=== PATIENT | female | born 1960 | race Two or more races ===

== ENCOUNTER 2016-09-30 19:05 | Emergency (ER) | payer SELFPAY ==
[~2016-09-30] VITALS: Ht 165.1 cm; Wt 82.6 kg
[~2016-09-30 19:05] MED LIST: DOCU100C5 PO; OMEP20CA9 PO; PHEN28OI RC; POLY17PO5 PO; SENN8.6T3 PO
[2016-09-30 20:04] VITALS: BP 144/78
[2016-09-30 21:16] LABS: BILIRUBIN,URINE NEGATIVE (NEG); GLUCOSE,URINE NEGATIVE (NEG); NITRITE,URINE NEGATIVE (NEG); PH,URINE 7.5; PROTEIN,URINE NEGATIVE (NEG-TRACE)
[2016-09-30 21:27] LABS: BACTERIA,URINE FEW /HPF (0-FEW); RBC,URINE 0 /HPF (0-2); SQUAMOUS EPITHELIAL CELL,UR OCC /LPF
[2016-09-30] MEDS ORDERED: KETOROLAC TROMETHAMINE 60 MG/2 ML INJ. IM ONE (21:30)
[2016-09-30] MEDS ORDERED: ORPHENADRINE CITRATE 60 MG/2 ML VIAL. IM ONE (21:30)
[2016-09-30] MEDS ORDERED: METH-37 PO (21:50)
[2016-09-30] MEDS ORDERED: ACET-704 PO (21:50)
--- NOTE | 2016-09-30 21:50 | PHYS DOC ---
Past Medical History Past Medical History: No Pertinent History Additional Past Medical Histor: DOES NOT SEE PHYSICIAN OTHER THAN ED VISITS NEEDED PER DAUGHTER. Past Surgical History: Cholecystectomy Smoking: Less than 1pk/day Alcohol Use: Occasionally Drug Use: None Adult General Chief Complaint Chief Complaint: LOWER EXT PAIN [facility] HPI Patient is a 55 year old female who presents with right hip and radiates down the right leg for 1 week. She reports lateral numbness in the right leg. She also has urinary frequency. She denies focal weakness, saddle anesthesia, or incontinence. She is not having nausea, vomiting, abdominal pain, dysuria, or hematuria. She has a history of sciatica on the left side with similar symptoms. She does not have a PCP. Review of Systems Review of Systems Constitutional: Denies fever or chills. [] Eyes: Denies change in visual acuity, redness, or eye pain. [] HENT: Denies ear pain, nasal congestion or sore throat. [] Respiratory: Denies cough or shortness of breath. [] Cardiovascular: Denies chest pain, palpitations or edema. [] GI: Denies abdominal pain, nausea, vomiting, bloody stools or diarrhea. [] : Denies dysuria, hematuria. Reports urinary frequency. Musculoskeletal: Reports right hip pain radiating into the right leg. Integument: Denies rash or skin lesions. [] Neurologic: Denies headache, focal weakness or sensory changes. Denies incontinence or saddle anesthesia. Endocrine: Denies polyuria or polydipsia. [] Psych: Denies anxiety or depression. [] All systems reviewed and negative unless otherwise stated in the HPI. Current Medications Current Medications Current Medications Medications (Trade) Dose Ordered Sig/Cj Start Time Stop Time Status Last Admin Dose Admin Ketorolac Tromethamine (Toradol Im) 60 mg 1X ONCE 09/30/16 21:30 09/30/16 21:31 DC 09/30/16 21:12 60 MG Orphenadrine Citrate (Norflex) 60 mg 1X ONCE 09/30/16 21:30 09/30/16 21:31 DC 09/30/16 21:12 60 MG Allergies Allergies Allergies Coded Allergies Type Severity Reaction Last Updated Verified No Known Drug Allergies 01/22/16 No Physical Exam Physical Exam Constitutional: Well developed, well nourished, no acute distress, non-toxic appearance. [] HENT: Normocephalic, atraumatic, oropharynx moist. [] Eyes: PERRLA, EOMI, conjunctiva normal, no discharge. [] Neck: Normal range of motion, no tenderness, supple, no stridor. [] Cardiovascular: Heart rate regular rhythm, no murmur. [] Lungs & Thorax: Bilateral breath sounds clear to auscultation without wheezes, rales, or rhonchi. [] Abdomen: Bowel sounds normal, soft, no tenderness, no masses, no pulsatile masses. [] Skin: Warm, dry, no erythema, no rash. [] Back: No midline tenderness, no CVA tenderness. Right lumbosacral paraspinal muscle tenderness. Extremities: No tenderness, ROM intact, no edema. Distal pulses equal bilaterally. Neurovascularly intact distally. Neurologic: Alert and oriented X 3, normal motor function, normal sensory function, no focal deficits noted. [] Psychologic: Affect normal, judgement normal, mood normal. [] . Current Patient Data Vital Signs Vital Signs Date Time Temp Pulse Resp B/P Pulse Ox O2 Delivery O2 Flow Rate FiO2 09/30/16 20:04 98.8 89 22 99 Room Air 98.8 Lab Values Laboratory Tests Test 09/30/16 21:05 Urine Color Yellow Urine Clarity Cloudy Urine pH 7.5 Urine Specific Isabel 1.020 Urine Protein Negativemg/dL (NEG-TRACE) Urine Glucose (UA) Negativemg/dL (NEG) Urine Ketones (Stick) Negativemg/dL (NEG) Urine Blood Negative (NEG) Urine Nitrite Negative (NEG) Urine Bilirubin Negative (NEG) Urine Urobilinogen Dipstick 1.0mg/dL (0.2 mg/dL) Urine Leukocyte Esterase Small (NEG) Urine RBC 0/HPF (0-2) Urine WBC 1-4/HPF (0-4) Urine Squamous Epithelial Cells Occ/LPF Urine Amorphous Sediment Present/HPF Urine Bacteria Few/HPF (0-FEW) Urine Mucus Slight/LPF EKG EKG [] Radiology/Procedures Radiology/Procedures [] Course & Med Decision Making Course & Med Decision Making Pertinent Labs and Imaging studies reviewed. (See chart for details) [] Dragon Disclaimer Dragon Disclaimer This electronic medical record was generated, in whole or in part, using a voice recognition dictation system. Departure Departure Impression: Primary Impression: Sciatica Disposition: 01 HOME, SELF-CARE Condition: STABLE Referrals: NO PCP (PCP) Patient Instructions: Sciatica, [id number] Additional Instructions: Please take the prescribed pain medicine as directed. Do not drive or operate heavy machinery while taking pain medication or muscle relaxers. To help with your pain, apply heat, practice dental stretching and light massage. Avoid bending or lifting activities that will further strain your back. Please follow-up with a primary care doctor if your pain continues. Return to the emergency department if you have a new or concerning symptoms. Scripts Acetaminophen With Codeine (Tylenol With Codeine #3 Tablet)1 Each Tablet1 Tab PO PRN Q6HRS PRN PAIN #20 TAB Prov:LUCIE AGUILAR 09/30/16 Methocarbamol (Robaxin)500 Mg [id number] Mg PO QID #20 TAB Prov:LUCIE AGUILAR 09/30/16 Problem Qualifiers Primary Impression: Sciatica Laterality: right Qualified Code: M54.31 - Sciatica, right side LUCIE AGUILAR Sep 30, 2016 21:50
== END 2016-09-30 22:03 | disposition home or self-care (01) ==
LOC: ER 19:05
DX: M54.31 Sciatica, right side (principal); F17.200 Nicotine dependence, unspecified, uncomplicated
CPT/HCPCS: 81001; 87086; 96372; 99284; J1885; J2360

== ENCOUNTER 2017-01-02 21:25 | Emergency (ER) | payer SELFPAY ==
[~2017-01-02] VITALS: Ht 157.5 cm; Wt 82.6 kg
[~2017-01-02 21:25] MED LIST changes: +ACET-704 PO; +DOCU100C28 PO; -DOCU100C5 PO; +METH-37 PO; +POLY17PO29 PO; -POLY17PO5 PO; +SENN-79 PO; -SENN8.6T3 PO
[2017-01-02 21:48] VITALS: BP 128/70
[2017-01-02] MEDS ORDERED: TRAM50TA PO (21:55)
--- NOTE | 2017-01-02 21:56 | PHYS DOC ---
Past Medical History Past Medical History: Other Additional Past Medical Histor: DOES NOT SEE PHYSICIAN OTHER THAN ED VISITS NEEDED PER DAUGHTER. Past Surgical History: Cholecystectomy Alcohol Use: Occasionally Drug Use: None Adult General Chief Complaint Chief Complaint: ANKLE PROBLEM HPI HPI Patient is a 56 year old female presents to the emergency department with a four-day history of pain to the left ankle. She states "there is a small bump there". Patient is non-Bruneian speaking and translation is via her granddaughter at their request. Review of Systems Review of Systems Constitutional: Denies fever or chills [] Eyes: Denies change in visual acuity, redness, or eye pain [] HENT: Denies nasal congestion or sore throat [] Respiratory: Denies cough or shortness of breath [] Cardiovascular: No additional information not addressed in HPI [] GI: Denies abdominal pain, nausea, vomiting, bloody stools or diarrhea [] : Denies dysuria or hematuria [] Musculoskeletal: Left ankle pain Integument: Denies rash or skin lesions [] Neurologic: Denies headache, focal weakness or sensory changes [] Endocrine: Denies polyuria or polydipsia [] Allergies Allergies Allergies Coded Allergies Type Severity Reaction Last Updated Verified No Known Drug Allergies 01/22/16 No Physical Exam Physical Exam Constitutional: Well developed, well nourished, no acute distress, non-toxic appearance. [] Cardiovascular:Heart rate regular rhythm, no murmur [] Lungs & Thorax: Bilateral breath sounds clear to auscultation [] Skin: Warm, dry, no erythema, no rash. Left ankle, lateral aspect, with a 1 cm firm, mobile nodule, no erythema, no fluctuance, no induration. [] Back: No tenderness, no CVA tenderness. [] Extremities: No tenderness, no cyanosis, no clubbing, ROM intact, no edema. [] Neurologic: Alert and oriented X 3, normal motor function, normal sensory function, no focal deficits noted. [] Psychologic: Affect normal, judgement normal, mood normal. [] Current Patient Data Vital Signs Vital Signs Date Time Temp Pulse Resp B/P (MAP) Pulse Ox O2 Delivery O2 Flow Rate FiO2 01/02/17 21:48 98.7 77 16 99 Room Air 98.7 01/02/17 21:48 128/70 (89) EKG EKG [] Radiology/Procedures Radiology/Procedures [] Course & Med Decision Making Course & Med Decision Making Pertinent Labs and Imaging studies reviewed. (See chart for details) [] Dragon Disclaimer Dragon Disclaimer This electronic medical record was generated, in whole or in part, using a voice recognition dictation system. Departure Departure Impression: Primary Impression: Cyst of skin Disposition: HOME, SELF-CARE Condition: STABLE Referrals: NO PCP (PCP) JAKUB JENSEN MD Patient Instructions: Epidermal Cyst Scripts Tramadol Hcl (TRAMADOL HCL) 50 Mg Tablet 50 MG PO Q8H Y for PAIN, #10 TAB 0 Refills Prov: LIONEL BUNDY APRN 01/02/17 LIONEL BUNDY APRN Jan 02, 2017 21:56
== END 2017-01-02 22:08 | disposition home or self-care (01) ==
LOC: ER 21:25
DX: L72.8 Other follicular cysts of the skin and subcutaneous tissue (principal); Z90.49 Acquired absence of other specified parts of digestive tract
CPT/HCPCS: 99283

== ENCOUNTER 2017-12-17 11:12 | Emergency (ER) | payer SELFPAY ==
[2017-12-17 11:45] LABS: URINE HCG POC HCG NEGATIVE (Negative)
[2017-12-17 11:49] LABS: BILIRUBIN,URINE NEGATIVE (NEG); CLARITY,URINE CLEAR; COLOR,URINE YELLOW; GLUCOSE,URINE NEGATIVE (NEG); NITRITE,URINE NEGATIVE (NEG); PH,URINE 5.5; PROTEIN,URINE 30 mg/dL (NEG-TRACE); UROBILINOGEN,URINE 0.2 mg/dL (0.2 mg/dL)
[2017-12-17 11:51] LABS: ADD MAN DIFF? NO
[2017-12-17 12:04] LABS: ANION GAP 9 (6-14); BLOOD UREA NITROGEN 14 mg/dL (7-20); BUN/CREATININE RATIO 16 (6-20); CALCIUM 8.6 mg/dL (8.5-10.1); CARBON DIOXIDE 26 mmol/L (21-32); CHLORIDE 103 mmol/L (98-107); CREATININE 0.9 mg/dL (0.6-1.0); GFR 64.5; GLUCOSE 143 mg/dL (70-99); POTASSIUM 3.7 mmol/L (3.5-5.1); SODIUM 138 mmol/L (136-145)
[2017-12-17 12:05] LABS: BASO % 0 % (0-3); EOS # 0.2 x10^3/uL (0.0-0.7); EOS % 2 % (0-3); HEMOGLOBIN 13.5 g/dL (12.0-15.5); LYMPH # 2.5 x10^3/uL (1.0-4.8); LYMPH % 29 % (24-48); MEAN CORPUSCULAR HEMOGLOBIN 29 pg (25-35); MEAN CORPUSCULAR HGB CONC 34 g/dL (31-37); MEAN CORPUSCULAR VOLUME 84 fL (79-100); MONO # 0.8 x10^3/uL (0.0-1.1); MONO % 10 % (0-9); NEUT # 4.9 x10^3uL (1.8-7.7); NEUT % 58 % (31-73); PLATELET COUNT 269 x10^3/uL (140-400); RED BLOOD COUNT 4.75 x10^6/uL (3.50-5.40); RED CELL DISTRIBUTION WIDTH 17.5 % (11.5-14.5); WHITE BLOOD COUNT 8.4 x10^3/uL (4.0-11.0)
[2017-12-17 12:09] LABS: ALBUMIN 3.4 g/dL (3.4-5.0); ALBUMIN/GLOBULIN RATIO 0.8 (1.0-1.7); ALK PHOS 106 U/L (46-116); ALT (SGPT) 37 U/L (14-59); AST (SGOT) 27 U/L (15-37); C-REACTIVE PROTEIN 3.6 mg/L (0-3.3); TOTAL BILIRUBIN 0.3 mg/dL (0.2-1.0); TOTAL PROTEIN 7.8 g/dL (6.4-8.2)
[2017-12-17 12:16] LABS: PROTHROMBIN TIME PATIENT 12.7 SEC (11.7-14.0)
[2017-12-17 12:17] LABS: BACTERIA,URINE 0 /HPF (0-FEW); RBC,URINE 0 /HPF (0-2); SQUAMOUS EPITHELIAL CELL,UR MANY /LPF
[2017-12-17] MEDS: IOHEXOL 300 MG/ML 100ML VIAL. IV (12:54)
[2017-12-17] MEDS ORDERED: CONTRAST GIVEN. MC (13:00)
[2017-12-17 13:02] LABS: FECAL OB PT POSITIVE (NEG); NEG OBC FOB NEG; POS OBC FOB POS
[2017-12-19] MEDS ORDERED: hydrALAZINE 20 MG/ML VIAL. IVP (18:45)
[2017-12-19] MEDS ORDERED: ACETAMINOPHEN 325 MG TABLET. PO (18:45)
[2017-12-19] MEDS ORDERED: MORPHINE SULFATE 2 MG/ML DISP.SYRIN. IV (18:45)
[2017-12-19] MEDS ORDERED: ONDANSETRON PF 4 MG/2 ML VIAL. IV (18:45)
[2017-12-19] MEDS ORDERED: DOCUSATE SODIUM 100 MG CAPSULE. PO (18:45)
[2017-12-19] MEDS ORDERED: traMADol 50 MG TABLET PO (18:45)
[2017-12-19] MEDS ORDERED: ASPIRIN 325 MG TABLET PO (18:45)
[2017-12-20 05:01] LABS: ADD MAN DIFF? NO
[2017-12-20 05:25] LABS: BASO % 0 % (0-3); EOS # 0.2 x10^3/uL (0.0-0.7); EOS % 2 % (0-3); HEMATOCRIT 38.8 % (36.0-47.0); LYMPH # 2.6 x10^3/uL (1.0-4.8); LYMPH % 27 % (24-48); MEAN CORPUSCULAR HEMOGLOBIN 28 pg (25-35); MEAN CORPUSCULAR HGB CONC 33 g/dL (31-37); MEAN CORPUSCULAR VOLUME 85 fL (79-100); MONO % 11 % (0-9); NEUT # 5.7 x10^3uL (1.8-7.7); NEUT % 60 % (31-73); PLATELET COUNT 240 x10^3/uL (140-400); RED BLOOD COUNT 4.58 x10^6/uL (3.50-5.40); RED CELL DISTRIBUTION WIDTH 17.8 % (11.5-14.5); WHITE BLOOD COUNT 9.5 x10^3/uL (4.0-11.0)
[2017-12-20 06:04] LABS: ANION GAP 8 (6-14); BLOOD UREA NITROGEN 12 mg/dL (7-20); CALCIUM 8.9 mg/dL (8.5-10.1); CARBON DIOXIDE 26 mmol/L (21-32); CHLORIDE 105 mmol/L (98-107); CREATININE 0.8 mg/dL (0.6-1.0); GFR 73.9; GLUCOSE 103 mg/dL (70-99); POTASSIUM 3.7 mmol/L (3.5-5.1); SODIUM 139 mmol/L (136-145)
[2017-12-20 10:57] LABS: TROPONINI < 0.017 ng/mL (0.000-0.055)
== END 2017-12-17 18:16 | disposition home or self-care (01) ==
LOC: ER 11:12
DX: K62.5 Hemorrhage of anus and rectum (principal); N85.9 Noninflammatory disorder of uterus, unspecified; R10.84 Generalized abdominal pain; Z90.49 Acquired absence of other specified parts of digestive tract; F17.210 Nicotine dependence, cigarettes, uncomplicated
CPT/HCPCS: 36415; 74177; 76830; 76856; 80048; 80053; 81001; 81025; 82274; 84484; 85025; 85610; 86140; 87086; 99285-25; Q9967

== ENCOUNTER 2017-12-19 17:13 | Inpatient (IN) | payer SELFPAY ==
[2017-12-19 18:20] LABS: ADD MAN DIFF? NO
[2017-12-19 18:25] LABS: BASO # 0.1 x10^3/uL (0.0-0.2); BASO % 1 % (0-3); EOS # 0.1 x10^3/uL (0.0-0.7); EOS % 1 % (0-3); HEMATOCRIT 42.2 % (36.0-47.0); HEMOGLOBIN 13.9 g/dL (12.0-15.5); LYMPH % 20 % (24-48); MEAN CORPUSCULAR HEMOGLOBIN 28 pg (25-35); MEAN CORPUSCULAR HGB CONC 33 g/dL (31-37); MEAN CORPUSCULAR VOLUME 85 fL (79-100); MONO % 10 % (0-9); NEUT # 6.9 x10^3uL (1.8-7.7); NEUT % 69 % (31-73); PLATELET COUNT 270 x10^3/uL (140-400); RED BLOOD COUNT 4.97 x10^6/uL (3.50-5.40); RED CELL DISTRIBUTION WIDTH 18.1 % (11.5-14.5)
[2017-12-19 18:33] LABS: PROTHROMBIN TIME PATIENT 12.6 SEC (11.7-14.0)
[2017-12-19 18:37] LABS: AGAP ISTAT 17 mmol/L (6-14); BUN ISTAT 13 mg/dL (8-26); CHLORIDE ISTAT 105 mmol/L (98-110); CREATININE ISTAT 0.5 mg/dL (0.5-1.4); GLUCOSE ISTAT 105 mg/dL (70-99); HEMATOCRIT ISTAT 41 % (36-40); HEMOGLOBIN ISTAT 13.9 g/dL (12-15); ION CA ISTAT 1.09 mmol/L (1.13-1.32); POTASSIUM ISTAT 3.7 mmol/L (3.5-5.0); SODIUM ISTAT 140 mmol/L (135-145); TOT CO2 ISTAT 22 mmol/L (23-32)
[2017-12-19 18:39] LABS: ANION GAP 13 (6-14); BLOOD UREA NITROGEN 15 mg/dL (7-20); BUN/CREATININE RATIO 25 (6-20); CALCIUM 8.9 mg/dL (8.5-10.1); CARBON DIOXIDE 22 mmol/L (21-32); CHLORIDE 103 mmol/L (98-107); CREATININE 0.6 mg/dL (0.6-1.0); GLUCOSE 101 mg/dL (70-99); POTASSIUM 4.2 mmol/L (3.5-5.1); SODIUM 138 mmol/L (136-145)
[2017-12-19 18:46] LABS: ALBUMIN 3.8 g/dL (3.4-5.0); ALBUMIN/GLOBULIN RATIO 0.9 (1.0-1.7); ALK PHOS 105 U/L (46-116); ALT (SGPT) 37 U/L (14-59); AST (SGOT) 33 U/L (15-37); LIPASE 158 U/L (73-393); TOTAL BILIRUBIN 0.3 mg/dL (0.2-1.0)
[2017-12-19 18:46] LABS: TROPONINI < 0.017 ng/mL (0.000-0.055)
[2017-12-19 18:51] LABS: CKMB INDEX 0.4 % (0-4); CKMB MASS 0.5 ng/mL (0.0-3.6); CREATINE KINASE 120 U/L (26-192)
[2017-12-19] MEDS: IOHEXOL 300 MG/ML 100ML VIAL. IV (18:53)
[2017-12-19] MEDS ORDERED: NITROGLYCERIN SUBLINGUAL 0.4 MG BOTTLE OF 25. SL (19:00)
[2017-12-19] MEDS ORDERED: fentaNYL PF VIAL 100 MCG/2 ML VIAL IV (19:00)
[2017-12-19] MEDS ORDERED: ALBUTEROL SULFATE 2.5 MG/3 ML NEBU. NEB (19:00)
[2017-12-19] MEDS: ASPIRIN 325 MG TABLET PO (19:00)
[2017-12-19] MEDS: fentaNYL PF VIAL 100 MCG/2 ML VIAL IV (19:00)
[2017-12-19] MEDS ORDERED: DOCUSATE SODIUM 100 MG CAPSULE. PO ×2 (19:00)
[2017-12-19] MEDS ORDERED: ASPIRIN 325 MG TABLET PO (19:00)
[2017-12-19] MEDS ORDERED: MORPHINE SULFATE 2 MG/ML DISP.SYRIN. IV (19:00)
[2017-12-19] MEDS ORDERED: hydrALAZINE 20 MG/ML VIAL. IVP ×2 (19:00)
[2017-12-19] MEDS ORDERED: ONDANSETRON PF 4 MG/2 ML VIAL. IV ×3 (19:00)
[2017-12-19] MEDS ORDERED: traMADol 50 MG TABLET PO (19:00)
[2017-12-19] MEDS ORDERED: ACETAMINOPHEN 325 MG TABLET. PO ×3 (19:00)
[2017-12-19] MEDS: MORPHINE SULFATE 2 MG/ML DISP.SYRIN. IV (19:13)
[2017-12-19 21:14] LABS: BILIRUBIN,URINE NEGATIVE (NEG); CLARITY,URINE CLEAR; COLOR,URINE YELLOW; GLUCOSE,URINE NEGATIVE (NEG); NITRITE,URINE POSITIVE (NEG); PROTEIN,URINE NEGATIVE (NEG-TRACE); UROBILINOGEN,URINE 0.2 mg/dL (0.2 mg/dL)
[2017-12-19 21:29] LABS: BACTERIA,URINE MANY /HPF (0-FEW); RBC,URINE 0 /HPF (0-2); SQUAMOUS EPITHELIAL CELL,UR MANY /LPF; WBC,URINE 20-40 /HPF (0-4)
[2017-12-19] MEDS: ENOXAPARIN 40 MG/0.4 ML SYRINGE. SQ (21:35)
[2017-12-20] MEDS: traMADol 50 MG TABLET PO (05:15)
[2017-12-20 06:07] LABS: CHOLESTEROL 237 mg/dL (0-200); HDLC 51 mg/dL (40-60); LDLC 152 mg/dL (0-100); NON-HDL CHOLESTEROL 186 mg/dL (0-129); TRIGLYCERIDES 172 mg/dL (0-150); VLDLC 34 mg/dL (0-40)
[2017-12-20 06:09] LABS: CHOLESTEROL/HDL RATIO 4.6
[2017-12-20 06:16] LABS: THYROID STIM HORMONE (TSH) 3.893 uIU/mL (0.358-3.74)
[2017-12-20 08:15] LABS: POC GLUCOSE 94 mg/dL (70-99)
[2017-12-20] MEDS: ASPIRIN ENTERIC COATED 81 MG TABLET.DR. PO (10:00)
[2017-12-20] MEDS ORDERED: MAGNESIUM HYDROXIDE 2,400 MG/30 ML ORAL.SUSP. PO (10:45)
[2017-12-20 11:12] LABS: FREE T4 1.09 ng/dL (0.76-1.46)
[2017-12-20] MEDS: REGADENOSON 0.4 MG/5 ML DISP.SYRIN. IV (11:38)
[2017-12-20] MEDS: cefTRIAXone IV Push 1 GM VIAL. IVP (13:20)
[2017-12-20 20:43] LABS: POC GLUCOSE 102 mg/dL (70-99)
[2017-12-20] MEDS: DOCUSATE SODIUM 100 MG CAPSULE. PO (21:13)
[2017-12-20] MEDS: SENNOSIDES/DOCUSATE 8.6/50MG TABLET. PO (21:13)
[2017-12-20] MEDS: ENOXAPARIN 40 MG/0.4 ML SYRINGE. SQ (21:14)
[2017-12-21 04:49] LABS: ADD MAN DIFF? NO
[2017-12-21 05:03] LABS: BASO % 0 % (0-3); EOS # 0.3 x10^3/uL (0.0-0.7); EOS % 3 % (0-3); HEMATOCRIT 38.3 % (36.0-47.0); HEMOGLOBIN 12.8 g/dL (12.0-15.5); LYMPH # 2.3 x10^3/uL (1.0-4.8); LYMPH % 28 % (24-48); MEAN CORPUSCULAR HEMOGLOBIN 28 pg (25-35); MEAN CORPUSCULAR HGB CONC 33 g/dL (31-37); MEAN CORPUSCULAR VOLUME 85 fL (79-100); MONO # 0.9 x10^3/uL (0.0-1.1); MONO % 11 % (0-9); NEUT # 4.8 x10^3uL (1.8-7.7); NEUT % 58 % (31-73); PLATELET COUNT 235 x10^3/uL (140-400); RED BLOOD COUNT 4.51 x10^6/uL (3.50-5.40); RED CELL DISTRIBUTION WIDTH 17.3 % (11.5-14.5); WHITE BLOOD COUNT 8.3 x10^3/uL (4.0-11.0)
[2017-12-21 05:20] LABS: ANION GAP 5 (6-14); BLOOD UREA NITROGEN 16 mg/dL (7-20); CALCIUM 8.4 mg/dL (8.5-10.1); CARBON DIOXIDE 28 mmol/L (21-32); CHLORIDE 105 mmol/L (98-107); CREATININE 0.8 mg/dL (0.6-1.0); GFR 73.9; GLUCOSE 101 mg/dL (70-99); POTASSIUM 3.9 mmol/L (3.5-5.1); SODIUM 138 mmol/L (136-145)
[2017-12-21] MEDS: ASPIRIN ENTERIC COATED 81 MG TABLET.DR. PO (07:52)
[2017-12-21] MEDS: DOCUSATE SODIUM 100 MG CAPSULE. PO (07:52)
[2017-12-21] MEDS: SENNOSIDES/DOCUSATE 8.6/50MG TABLET. PO (07:52)
[2017-12-21] MEDS: traMADol 50 MG TABLET PO (07:52)
[2017-12-21] MEDS: cefTRIAXone IV Push 1 GM VIAL. IVP (11:20)
[2017-12-21] MEDS ORDERED: CIPROFLOXACIN HCL 250 MG TABLET. PO (21:00)
== END 2017-12-21 16:29 | disposition home or self-care (01) | DRG 556 ==
LOC: 2 SOUTH 20:16 → ER 17:13 → 2 SOUTH 19:30
DX: M79.1 Myalgia (principal); N39.0 Urinary tract infection, site not specified; E66.01 Morbid (severe) obesity due to excess calories; F17.210 Nicotine dependence, cigarettes, uncomplicated; K59.00 Constipation, unspecified; K76.0 Fatty (change of) liver, not elsewhere classified; N83.201 Unspecified ovarian cyst, right side; R93.8 Abnormal findings on diagnostic imaging of other specified body structures; E04.1 Nontoxic single thyroid nodule; R06.4 Hyperventilation; Z78.0 Asymptomatic menopausal state; Z82.49 Family history of ischemic heart disease and other diseases of the circulatory system; Z86.718 Personal history of other venous thrombosis and embolism; Z68.31 Body mass index [BMI] 31.0-31.9, adult; Z87.81 Personal history of (healed) traumatic fracture; Z90.49 Acquired absence of other specified parts of digestive tract
CPT/HCPCS: 36415; 71045; 71275; 74018; 76536; 78452; 80047; 80048; 80053; 80061; 81001; 82553; 82962; 83690; 84439; 84443; 84481; 84484; 85025; 85610; 93005; 93017; 94760; 96374; 96375; 96376; 99285-25; A9500; J0696; J1650; J2270; J2785; Q9967

== ENCOUNTER 2018-02-22 00:07 | Emergency (ER) | payer SELFPAY ==
[~2018-02-22] VITALS: Ht 152.4 cm; Wt 78.0 kg
[~2018-02-22 00:07] MED LIST changes: +CIPR250T30 PO; +TRAM50TA PO
[2018-02-22 00:56] LABS: BASO % 0 % (0-3); EOS # 0.2 x10^3/uL (0.0-0.7); EOS % 2 % (0-3); HEMATOCRIT 40.7 % (36.0-47.0); HEMOGLOBIN 14.1 g/dL (12.0-15.5); LYMPH # 2.4 x10^3/uL (1.0-4.8); LYMPH % 29 % (24-48); MEAN CORPUSCULAR HEMOGLOBIN 31 pg (25-35); MEAN CORPUSCULAR HGB CONC 35 g/dL (31-37); MEAN CORPUSCULAR VOLUME 89 fL (79-100); MONO # 0.8 x10^3/uL (0.0-1.1); MONO % 9 % (0-9); NEUT # 4.9 x10^3uL (1.8-7.7); NEUT % 60 % (31-73); PLATELET COUNT 240 x10^3/uL (140-400); RED CELL DISTRIBUTION WIDTH 16.5 % (11.5-14.5); WHITE BLOOD COUNT 8.2 x10^3/uL (4.0-11.0)
[2018-02-22] MEDS: NITROGLYCERIN SUBLINGUAL 0.4 MG BOTTLE OF 25. SL PRN (01:01)
[2018-02-22] MEDS: ASPIRIN CHEWABLE 81 MG TABLET. PO ONE (01:01)
[2018-02-22 01:21] LABS: CALCIUM 9.1 mg/dL (8.5-10.1); CREATININE 0.9 mg/dL (0.6-1.0); GFR 64.3; POTASSIUM 3.4 mmol/L (3.5-5.1)
[2018-02-22] MEDS: ONDANSETRON PF 4 MG/2 ML VIAL. IV ONE (01:22)
[2018-02-22] MEDS: fentaNYL PF VIAL 100 MCG/2 ML VIAL IV ONE (01:22)
[2018-02-22 01:24] LABS: ALBUMIN 3.5 g/dL (3.4-5.0); ALBUMIN/GLOBULIN RATIO 0.9 (1.0-1.7); TOTAL BILIRUBIN 0.2 mg/dL (0.2-1.0); TOTAL PROTEIN 7.5 g/dL (6.4-8.2)
[2018-02-22] MEDS: IOHEXOL 300 MG/ML 100ML VIAL. IV ONE (01:50)
[2018-02-22] MEDS: MORPHINE SULFATE 2 MG/ML VIAL. IV ONE (01:54)
[2018-02-22] MEDS ORDERED: CONTRAST GIVEN. MC PRN (02:00)
--- NOTE | 2018-02-22 03:29 | RAD ---
INDICATION: rt sided face, jaw, neck pain x 1 week, [id number] 75ml, no priors COMPARISON: None. TECHNIQUE: Axial CT images obtained through the head and neck arterial vasculature with intravenous contrast with three-dimensional images process per angiogram protocol. Estimates of carotid stenosis based on criteria that correlates with NASCET. One or more of the following individualized dose reduction techniques were utilized for this examination: 1. Automated exposure control; 2. Adjustment of the mA and/or kV according to patient size; 3. Use of iterative reconstruction technique. FINDINGS: Left vertebral artery patent. Right vertebral artery patent. Left common carotid artery patent. Left internal carotid artery patent. Right internal carotid artery patent. Right common carotid artery patent. Proximal external carotid arteries are patent. Internal carotid arteries course anterior to the spine. Portion of right common carotid artery is obscured by motion. Right thyroid mass identified measuring up to approximately 31 mm. A ascending thoracic aorta is partially seen and largely obscured by motion. Basilar artery is patent. Adjacent to the basilar artery on the left there is a suspected additional lumen to the basilar artery which is parallel to the main vessel. The cerebellar vessels are not well evaluated given small size and motion. Proximal MAILMASTER patent. Proximal LARRY and MCA patent. Within the left anterior cerebral artery there is a portion that appears prominent in size measuring up to about 2-3 mm although this is in a region of motion. IMPRESSION: 1. The carotid and vertebral arteries appear patent within the neck. 2. There is a vessel seen parallel to the proximal aspect of the basilar artery for a short distance. Would favor that this is from causes such as fenestration of the basilar artery or short segment duplication with other causes such as a nonthrombosed short segment dissection flap considered less likely given the appearance but there is no comparison available for review to assess what the patient's baseline appearance is therefore a short segment nonthrombosed dissection flap cannot be excluded on this exam if there is high clinical concern. 3. There is also a small portion of the left anterior cerebral artery which appears prominent in comparison to the more proximal and distal segments. Could be from motion artifact but follow-up could be obtained to ensure no increase in this finding to exclude mild aneurysmal dilatation. 4. Partially enhancing right lobe of thyroid mass. Follow-up ultrasound could be helpful to further evaluate. 5. Partial opacification of right mastoid air cells which could be from congestion or mastoiditis. Electronically signed by: Domingo Das MD (02/22/2018 3:25 AM) [facility]
[2018-02-22] MEDS ORDERED: MORPHINE SULFATE 4 MG/ML VIAL. IV ONE (04:30)
--- NOTE | 2018-02-22 06:14 | PHYS DOC ---
Past Medical History Past Medical History: Seizure Additional Past Medical Histor: DOES NOT SEE PHYSICIAN OTHER THAN ED VISITS NEEDED PER DAUGHTER. Past Surgical History: No Surgical History Alcohol Use: Sober Drug Use: None Adult General Chief Complaint Chief Complaint: FACE PAIN HPI HPI Patient is a 57 year old spitting female who presents with right-sided facial/ neck pain which is been continuous for 6 days with acute progression over this evening. Pain is moderate to severe and worse with palpation. No chest pain shortness breath, nausea vomiting or sweats. No motor extremity weakness or loss of sensation. No other acute symptoms or complaint. [] Review of Systems Review of Systems Review symptoms as per history of present illness. All other systems were reviewed and found to be within normal limits, except as documented in this note. Current Medications Current Medications Current Medications Medications (Trade) Dose Ordered Sig/Cj Start Time Stop Time Status Last Admin Dose Admin Aspirin (Children'S Aspirin) 324 mg 1X ONCE 02/22/18 00:45 02/22/18 01:19 DC 02/22/18 01:01 324 MG Fentanyl Citrate (Fentanyl 2ml Vial) 50 mcg 1X ONCE 02/22/18 01:30 02/22/18 01:31 DC 02/22/18 01:22 50 MCG Info (CONTRAST GIVEN -- Rx MONITORING) 1 each PRN DAILY PRN 02/22/18 02:00 02/24/18 01:59 Iohexol (Omnipaque 300 Mg/ml) 75 ml 1X ONCE 02/22/18 01:45 02/22/18 01:46 DC 02/22/18 01:50 75 ML Morphine Sulfate (Morphine Sulfate) 4 mg 1X ONCE 02/22/18 04:30 02/22/18 05:01 DC Nitroglycerin (Nitrostat) 0.4 mg PRN Q5MIN PRN 02/22/18 00:45 02/22/18 01:01 0.4 MG Ondansetron HCl (Zofran) 4 mg 1X ONCE 02/22/18 01:30 02/22/18 01:31 DC 02/22/18 01:22 4 MG Allergies Allergies Allergies Coded Allergies Type Severity Reaction Last Updated Verified No Known Drug Allergies 01/22/16 No Physical Exam Physical Exam Constitutional: Moderate distress, secondary to pain. [] HENT: Normocephalic, atraumatic, bilateral external ears normal, oropharynx moist, no oral exudates, nose normal. [] Eyes: PERRLA. [] Neck: Normal range of motion, jaw/neck pain, tenderness palpation supple [] Cardiovascular:Heart rate regular rhythm, no murmur [] Lungs & Thorax: Bilateral breath sounds clear to auscultation [] Abdomen: Bowel sounds normal, soft, no tenderness, no masses, no pulsatile masses. [] Skin: Warm, dry, no erythema. [] Back: No tenderness, no CVA tenderness. [] Extremities: No tenderness, no cyanosis, no clubbing, ROM intact, no edema. [] Neurologic: Alert and oriented, normal motor function, normal sensory function, no focal deficits noted. [] Psychologic: Affect normal, judgement normal, mood normal. [] Current Patient Data Vital Signs Vital Signs Date Time Temp Pulse Resp B/P (MAP) Pulse Ox O2 Delivery O2 Flow Rate FiO2 02/22/18 05:30 66 16 124/67 (86) 97 Room Air 02/22/18 00:23 98.1 98.1 Lab Values Laboratory Tests Test 02/22/18 00:45 02/22/18 00:55 02/22/18 03:20 White Blood Count 8.2 x10^3/uL (4.0-11.0) Red Blood Count 4.60 x10^6/uL (3.50-5.40) Hemoglobin 14.1 g/dL (12.0-15.5) Hematocrit 40.7 % (36.0-47.0) Mean Corpuscular Volume 89 fL (79-100) Mean Corpuscular Hemoglobin 31 pg (25-35) Mean Corpuscular Hemoglobin Concent 35 g/dL (31-37) Red Cell Distribution Width 16.5 % (11.5-14.5) H Platelet Count 240 x10^3/uL (140-400) Neutrophils (%) (Auto) 60 % (31-73) Lymphocytes (%) (Auto) 29 % (24-48) Monocytes (%) (Auto) 9 % (0-9) Eosinophils (%) (Auto) 2 % (0-3) Basophils (%) (Auto) 0 % (0-3) Neutrophils # (Auto) 4.9 x10^3uL (1.8-7.7) Lymphocytes # (Auto) 2.4 x10^3/uL (1.0-4.8) Monocytes # (Auto) 0.8 x10^3/uL (0.0-1.1) Eosinophils # (Auto) 0.2 x10^3/uL (0.0-0.7) Basophils # (Auto) 0.0 x10^3/uL (0.0-0.2) D-Dimer (Nakia) < 0.27 ug/mlFEU Sodium Level 141 mmol/L (136-145) Potassium Level 3.4 mmol/L (3.5-5.1) L Chloride Level 106 mmol/L (98-107) Carbon Dioxide Level 23 mmol/L (21-32) Anion Gap 12 (6-14) Blood Urea Nitrogen 16 mg/dL (7-20) Creatinine 0.9 mg/dL (0.6-1.0) Estimated GFR (Cockcroft-Gault) 64.3 BUN/Creatinine Ratio 18 (6-20) Glucose Level 188 mg/dL (70-99) H Calcium Level 9.1 mg/dL (8.5-10.1) Total Bilirubin 0.2 mg/dL (0.2-1.0) Aspartate Amino Transferase (AST) 20 U/L (15-37) Alanine Aminotransferase (ALT) 36 U/L (14-59) Alkaline Phosphatase 112 U/L (46-116) Troponin I Quantitative < 0.017 ng/mL (0.000-0.055) < 0.017 ng/mL (0.000-0.055) Total Protein 7.5 g/dL (6.4-8.2) Albumin 3.5 g/dL (3.4-5.0) Albumin/Globulin Ratio 0.9 (1.0-1.7) L Erythrocyte Sedimentation Rate 13 (0-25) C-Reactive Protein, Quantitative 2.3 mg/L (0-3.3) Laboratory Tests 02/22/18 00:45 Laboratory Tests 02/22/18 00:45 EKG EKG [EKG: NSR 88, left axis deviation, poor R-wave progression anteriorly needs, no acute ST-T wave changes, QTC 446. ] Radiology/Procedures Radiology/Procedures [CTA head/neck: finding reviewed. ] Course & Med Decision Making Course & Med Decision Making Pertinent Labs and Imaging studies reviewed. (See chart for details) [Intractable pain, imaging, lab reviewed. R thyroid mass, indeterminate vasc exam. with [facility] who accepts transfer to their facility per Dr. Dannie Lal.] [employer] Disclaimer Dragon Disclaimer This electronic medical record was generated, in whole or in part, using a voice recognition dictation system. Departure Departure Impression: Primary Impression: Neck pain Disposition: 02 TRANSFER [facility] Condition: STABLE Referrals: NO PCP (PCP) SRINIVAS HARRIS DO Feb 22, 2018 06:14
[2018-02-22 07:00] VITALS: BP 147/76
--- NOTE | 2018-02-22 07:52 | RAD ---
EXAM: CHEST AP ONLY AP View of the chest DATE: 02/22/2018 12:32 AM INDICATION: chest pain tonight, prior sent COMPARISON: 12/19/2017 FINDINGS: The heart is not enlarged. Mediastinal and hilar contours are normal. No focal parenchymal airspace opacity. Trace pleural thickening left costophrenic angle. No pleural effusion or pneumothorax. IMPRESSION: 1. No radiographic evidence for acute cardiopulmonary process. Electronically signed by: Prem Britton MD (02/22/2018 7:49 AM) [facility]
--- NOTE | 2018-02-23 07:23 | EKG ---
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
== END 2018-02-22 07:07 | disposition short-term general hospital (02) ==
LOC: ER 00:07
DX: M54.2 Cervicalgia (principal); R51 Headache
CPT/HCPCS: 36415; 70496; 70498; 71045; 80053; 84484; 85025; 85379; 85651; 86140; 93005; 96374; 96375; 99285; J2270; J2405; J3010; Q9967

== ENCOUNTER 2018-06-15 01:06 | Emergency (ER) | payer SELFPAY ==
[~2018-06-15] VITALS: Ht 152.4 cm; Wt 78.0 kg
[~2018-06-15 01:06] MED LIST changes: -SENN-79 PO; +SENN-80 PO
--- NOTE | 2018-06-15 02:03 | PHYS DOC ---
Past Medical History Past Medical History: Hypothyroid Past Surgical History: Cholecystectomy Alcohol Use: None Drug Use: None Adult General Chief Complaint Chief Complaint: ABDOMINAL PAIN HPI HPI Patient is a 57 year old female who presents with abdominal pain. This is generally in the epigastric region but radiates diffusely as well as radiates into her left chest occasionally. This is been present for the past 2 weeks. Worse with food. There is been nausea without any vomiting. No diaphoresis. No diarrhea. Pain is crampy in nature, moderate to severe in intensity. No home medicines have made it better. No previous history of discomfort like this.[] Review of Systems Review of Systems Constitutional: Denies fever or chills [] Eyes: Denies change in visual acuity, redness, or eye pain [] HENT: Denies nasal congestion or sore throat [] Respiratory: Denies cough or shortness of breath [] Cardiovascular: No additional information not addressed in HPI [] GI: See history of present illness[] : Denies dysuria or hematuria [] Musculoskeletal: Denies back pain or joint pain [] Integument: Denies rash or skin lesions [] Neurologic: Denies headache, focal weakness or sensory changes [] Endocrine: Denies polyuria or polydipsia [] All other systems were reviewed and found to be within normal limits, except as documented in this note. Current Medications Current Medications Current Medications Medications (Trade) Dose Ordered Sig/Cj Start Time Stop Time Status Last Admin Dose Admin Hyoscyamine (Anaspaz) 0.125 mg ONCE ONCE 06/15/18 02:15 06/15/18 02:16 DC 06/15/18 02:32 0.125 MG Prochlorperazine Edisylate (Compazine) 5 mg 1X ONCE 06/15/18 02:15 06/15/18 02:16 DC 06/15/18 02:32 5 MG Allergies Allergies Allergies Coded Allergies Type Severity Reaction Last Updated Verified No Known Drug Allergies 06/15/18 No Physical Exam Physical Exam Constitutional: Well developed, well nourished, no acute distress, non-toxic appearance. [] HENT: Normocephalic, atraumatic, bilateral external ears normal, oropharynx moist, no oral exudates, nose normal. [] Eyes: PERRLA, EOMI, conjunctiva normal, no discharge. [] Neck: Normal range of motion, no tenderness, supple, no stridor. [] Cardiovascular:Heart rate regular rhythm, no murmur [] Lungs & Thorax: Bilateral breath sounds clear to auscultation [] Abdomen: Bowel sounds normal, soft, diffuse tenderness, worse in the epigastric region, no rebound, no guarding, no rigidity, she sits up without any difficulty., no masses, no pulsatile masses. [] Skin: Warm, dry, no erythema, no rash. [] Back: No tenderness, no CVA tenderness. [] Extremities: No tenderness, no cyanosis, no clubbing, ROM intact, no edema. [] Neurologic: Alert and oriented X 3, normal motor function, normal sensory function, no focal deficits noted. [] Psychologic: Affect normal, judgement normal, mood normal. [] Current Patient Data Vital Signs Vital Signs Date Time Temp Pulse Resp B/P (MAP) Pulse Ox O2 Delivery O2 Flow Rate FiO2 06/15/18 01:30 97.7 83 14 126/78 (94) 100 Room Air 97.7 Lab Values Laboratory Tests Test 06/15/18 01:07 06/15/18 01:55 Urine Collection Type Unknown Urine Color Yellow Urine Clarity Clear Urine pH 6.0 Urine Specific [place] 1.020 Urine Protein Negative mg/dL (NEG-TRACE) Urine Glucose (UA) Negative mg/dL (NEG) Urine Ketones (Stick) Negative mg/dL (NEG) Urine Blood Negative (NEG) Urine Nitrite Negative (NEG) Urine Bilirubin Negative (NEG) Urine Urobilinogen Dipstick 0.2 mg/dL (0.2 mg/dL) Urine Leukocyte Esterase Negative (NEG) Urine RBC 0 /HPF (0-2) Urine WBC Occ /HPF (0-4) Urine Squamous Epithelial Cells Mod /LPF Urine Bacteria Few /HPF (0-FEW) Urine Mucus Mod /LPF White Blood Count 8.8 x10^3/uL (4.0-11.0) Red Blood Count 4.56 x10^6/uL (3.50-5.40) Hemoglobin 15.3 g/dL (12.0-15.5) Hematocrit 42.3 % (36.0-47.0) Mean Corpuscular Volume 93 fL (79-100) Mean Corpuscular Hemoglobin 34 pg (25-35) Mean Corpuscular Hemoglobin Concent 36 g/dL (31-37) Red Cell Distribution Width 13.5 % (11.5-14.5) Platelet Count 212 x10^3/uL (140-400) Neutrophils (%) (Auto) 64 % (31-73) Lymphocytes (%) (Auto) 23 % (24-48) L Monocytes (%) (Auto) 11 % (0-9) H Eosinophils (%) (Auto) 2 % (0-3) Basophils (%) (Auto) 0 % (0-3) Neutrophils # (Auto) 5.6 x10^3uL (1.8-7.7) Lymphocytes # (Auto) 2.0 x10^3/uL (1.0-4.8) Monocytes # (Auto) 1.0 x10^3/uL (0.0-1.1) Eosinophils # (Auto) 0.2 x10^3/uL (0.0-0.7) Basophils # (Auto) 0.0 x10^3/uL (0.0-0.2) Sodium Level 140 mmol/L (136-145) Potassium Level 3.9 mmol/L (3.5-5.1) Chloride Level 104 mmol/L (98-107) Carbon Dioxide Level 25 mmol/L (21-32) Anion Gap 11 (6-14) Blood Urea Nitrogen 9 mg/dL (7-20) Creatinine 0.7 mg/dL (0.6-1.0) Estimated GFR (Cockcroft-Gault) 85.9 BUN/Creatinine Ratio 13 (6-20) Glucose Level 112 mg/dL (70-99) H Calcium Level 8.9 mg/dL (8.5-10.1) Total Bilirubin 0.2 mg/dL (0.2-1.0) Aspartate Amino Transferase (AST) 29 U/L (15-37) Alanine Aminotransferase (ALT) 46 U/L (14-59) Alkaline Phosphatase 136 U/L (46-116) H Troponin I Quantitative < 0.017 ng/mL (0.000-0.055) Total Protein 7.5 g/dL (6.4-8.2) Albumin 3.4 g/dL (3.4-5.0) Albumin/Globulin Ratio 0.8 (1.0-1.7) L Lipase 113 U/L (73-393) Laboratory Tests 06/15/18 01:55 Laboratory Tests 06/15/18 01:55 EKG EKG EKG shows a sinus rhythm at 68 bpm, left axis deviation, QTC of 443 ms, no ST elevations, nonspecific ST-T wave changes, no old EKG is available for comparison.[] Radiology/Procedures Radiology/Procedures Chest AP portable at 02 10: Reason for examination: Abdominal pain with radiation into chest. The heart size is normal. Mediastinum is unremarkable. Lung sommers are clear. No acute bony abnormalities are seen. Impression: No acute cardiopulmonary disease. CT abdomen pelvis without contrast: Helical images were obtained through the abdomen pelvis with no contrast administered. Reconstruction was performed in sagittal and coronal planes. Exposure: One or more of the following individualized dose reduction techniques were utilized for this examination: 1. Automated exposure control 2. Adjustment of the mA and/or kV according to patient size 3. Use of iterative reconstruction technique. The lung bases are clear. The heart size is normal with no pericardial effusion seen. No focal abnormality seen at the liver, spleen, adrenal glands or pancreas. The gallbladder surgically absent. The abdominal aorta and inferior vena cava show no acute abnormalities. The kidneys show no renal masses, renal calculi, hydronephrosis or evidence of obstructive uropathy. The stomach is not distended. The small intestinal tract is not distended and shows no obstruction. There is no evidence of diverticulosis or diverticulitis. No abnormality seen at the appendix. No abnormality seen at the bladder or uterus. There are probable cysts bilaterally at the ovaries with the largest measuring approximately 2 cm in size on the right. No free fluid or free air is seen in the abdomen or pelvis. IMPRESSION: Probable small ovarian cysts bilaterally with the largest measuring approximately 2 cm in size on the right. No other focal abnormality seen in the abdomen or pelvis.[] Course & Med Decision Making Course & Med Decision Making Pertinent Labs and Imaging studies reviewed. (See chart for details) ED course: Patient arrived, was placed in bed, tolerated exam well. Patient was transported to and from [place] without any complications. After return of lab and imaging findings, these were discussed with the patient who voiced understanding. All questions were answered. Patient was discharged in improved condition. Medical decision making: There is no evidence of acute coronary syndrome, no pancreatitis, cholecystitis, surgical interabdominal pathology, UTI or pyelonephritis.[] Dragon Disclaimer Dragon Disclaimer This electronic medical record was generated, in whole or in part, using a voice recognition dictation system. Departure Departure Impression: Primary Impression: Abdominal pain Disposition: 01 HOME, SELF-CARE Condition: GOOD Patient Instructions: Abdominal Pain Additional Instructions: Follow-up with your regular doctor. If you do not have a regular doctor or local low-cost clinic list will be provided for you. Return to the ER if worsening pain, unable to tolerate liquids, or any other concerns. Scripts Lansoprazole (PREVACID) 15 Mg Capsule.dr 15 MG PO DAILY, #20 CAP Prov: ADAMA BELTRAN DO 06/15/18 Hyoscyamine Sulfate (LEVSIN) 0.125 Mg Tablet 0.125 MG PO QID, #30 TAB Prov: ADAMA BELTRAN DO 06/15/18 Metoclopramide Hcl (REGLAN) 10 Mg Tablet 10 MG PO QIDACHS, #30 TAB 0 Refills Prov: ADAMA BELTRAN DO 06/15/18 Problem Qualifiers Primary Impression: Abdominal pain Abdominal location: epigastric Qualified Codes: R10.13 - Epigastric pain ADAMA BELTRAN DO Jun 15, 2018 02:03
[2018-06-15 02:08] LABS: BASO % 0 % (0-3); EOS # 0.2 x10^3/uL (0.0-0.7); EOS % 2 % (0-3); HEMATOCRIT 42.3 % (36.0-47.0); HEMOGLOBIN 15.3 g/dL (12.0-15.5); LYMPH % 23 % (24-48); MEAN CORPUSCULAR HEMOGLOBIN 34 pg (25-35); MEAN CORPUSCULAR HGB CONC 36 g/dL (31-37); MEAN CORPUSCULAR VOLUME 93 fL (79-100); MONO % 11 % (0-9); NEUT # 5.6 x10^3uL (1.8-7.7); NEUT % 64 % (31-73); PLATELET COUNT 212 x10^3/uL (140-400); RED BLOOD COUNT 4.56 x10^6/uL (3.50-5.40); RED CELL DISTRIBUTION WIDTH 13.5 % (11.5-14.5); WHITE BLOOD COUNT 8.8 x10^3/uL (4.0-11.0)
[2018-06-15 02:14] LABS: BILIRUBIN,URINE NEGATIVE (NEG); CLARITY,URINE CLEAR; COLOR,URINE YELLOW; NITRITE,URINE NEGATIVE (NEG); PROTEIN,URINE NEGATIVE (NEG-TRACE); UROBILINOGEN,URINE 0.2 mg/dL (0.2 mg/dL)
[2018-06-15] MEDS ORDERED: PROCHLORPERAZINE 10 MG/2 ML VIAL. IV ONE (02:15)
[2018-06-15] MEDS ORDERED: HYOSCYAMINE 0.125 MG TAB.RAPDIS PO ONE (02:15)
[2018-06-15 02:26] LABS: ALBUMIN 3.4 g/dL (3.4-5.0); ALBUMIN/GLOBULIN RATIO 0.8 (1.0-1.7); CALCIUM 8.9 mg/dL (8.5-10.1); CREATININE 0.7 mg/dL (0.6-1.0); GFR 85.9; POTASSIUM 3.9 mmol/L (3.5-5.1); TOTAL BILIRUBIN 0.2 mg/dL (0.2-1.0); TOTAL PROTEIN 7.5 g/dL (6.4-8.2)
[2018-06-15 02:50] LABS: BACTERIA,URINE FEW /HPF (0-FEW); RBC,URINE 0 /HPF (0-2); SQUAMOUS EPITHELIAL CELL,UR MOD /LPF; WBC,URINE OCC /HPF (0-4)
[2018-06-15 03:00] VITALS: BP 102/58
--- NOTE | 2018-06-15 03:06 | RAD ---
Chest AP portable at 02 10: Reason for examination: Abdominal pain with radiation into chest. The heart size is normal. Mediastinum is unremarkable. Lung sommers are clear. No acute bony abnormalities are seen. Impression: No acute cardiopulmonary disease. CT abdomen pelvis without contrast: Helical images were obtained through the abdomen pelvis with no contrast administered. Reconstruction was performed in sagittal and coronal planes. Exposure: One or more of the following individualized dose reduction techniques were utilized for this examination: 1. Automated exposure control 2. Adjustment of the mA and/or kV according to patient size 3. Use of iterative reconstruction technique. The lung bases are clear. The heart size is normal with no pericardial effusion seen. No focal abnormality seen at the liver, spleen, adrenal glands or pancreas. The gallbladder surgically absent. The abdominal aorta and inferior vena cava show no acute abnormalities. The kidneys show no renal masses, renal calculi, hydronephrosis or evidence of obstructive uropathy. The stomach is not distended. The small intestinal tract is not distended and shows no obstruction. There is no evidence of diverticulosis or diverticulitis. No abnormality seen at the appendix. No abnormality seen at the bladder or uterus. There are probable cysts bilaterally at the ovaries with the largest measuring approximately 2 cm in size on the right. No free fluid or free air is seen in the abdomen or pelvis. IMPRESSION: Probable small ovarian cysts bilaterally with the largest measuring approximately 2 cm in size on the right. No other focal abnormality seen in the abdomen or pelvis. Electronically signed by: Yaklein Kellogg MD (06/15/2018 3:01 AM) [facility]
[2018-06-15] MEDS ORDERED: METO10TA81 PO (03:15)
[2018-06-15] MEDS ORDERED: HYOS0.1264 PO (03:15)
[2018-06-15] MEDS ORDERED: LANS15CA78 PO (03:15)
--- NOTE | 2018-06-15 06:45 | EKG ---
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
== END 2018-06-15 03:33 | disposition home or self-care (01) ==
LOC: ER 01:06 → MERGE 01:06 → ER 03:33
DX: R10.13 Epigastric pain (principal); R11.0 Nausea; E03.9 Hypothyroidism, unspecified; Z90.49 Acquired absence of other specified parts of digestive tract
CPT/HCPCS: 36415; 71045; 74176; 80053; 81001; 83690; 84484; 85025; 93005; 96374; 99284; J0780

== ENCOUNTER 2018-06-17 00:50 | Emergency (ER) | payer SELFPAY ==
[~2018-06-17] VITALS: Ht 152.4 cm; Wt 78.0 kg
[~2018-06-17 00:50] MED LIST changes: +HYOS0.1264 PO; +LANS15CA78 PO; +METO10TA81 PO
[2018-06-17 01:39] LABS: BILIRUBIN,URINE NEGATIVE (NEG); CLARITY,URINE CLEAR; COLOR,URINE YELLOW; NITRITE,URINE NEGATIVE (NEG); PROTEIN,URINE NEGATIVE (NEG-TRACE); UROBILINOGEN,URINE 0.2 mg/dL (0.2 mg/dL)
[2018-06-17 01:40] LABS: BASO # 0.1 x10^3/uL (0.0-0.2); BASO % 1 % (0-3); EOS # 0.2 x10^3/uL (0.0-0.7); EOS % 3 % (0-3); HEMATOCRIT 41.8 % (36.0-47.0); HEMOGLOBIN 14.9 g/dL (12.0-15.5); LYMPH # 2.2 x10^3/uL (1.0-4.8); LYMPH % 23 % (24-48); MEAN CORPUSCULAR HEMOGLOBIN 34 pg (25-35); MEAN CORPUSCULAR HGB CONC 36 g/dL (31-37); MEAN CORPUSCULAR VOLUME 94 fL (79-100); MONO # 1.1 x10^3/uL (0.0-1.1); MONO % 12 % (0-9); NEUT # 5.9 x10^3uL (1.8-7.7); NEUT % 62 % (31-73); PLATELET COUNT 227 x10^3/uL (140-400); RED BLOOD COUNT 4.45 x10^6/uL (3.50-5.40); RED CELL DISTRIBUTION WIDTH 13.4 % (11.5-14.5); WHITE BLOOD COUNT 9.5 x10^3/uL (4.0-11.0)
[2018-06-17] MEDS ORDERED: ONDANSETRON PF 4 MG/2 ML VIAL. IV ONE (01:45)
[2018-06-17] MEDS ORDERED: HYDROcodone/APAP 5/325MG 1 TAB TABLET PO ONE (01:45)
[2018-06-17] MEDS ORDERED: FAMOTIDINE 20 MG TABLET. PO ONE (01:45)
[2018-06-17] MEDS ORDERED: ONDA4TAB7 PO (01:48)
[2018-06-17] MEDS ORDERED: HYDR-3164 PO (01:48)
[2018-06-17] MEDS ORDERED: OMEP40CA5 PO (01:48)
[2018-06-17 01:59] LABS: CALCIUM 9.4 mg/dL (8.5-10.1); CREATININE 0.6 mg/dL (0.6-1.0); GFR 102.7; POTASSIUM 4.3 mmol/L (3.5-5.1)
[2018-06-17 02:06] LABS: ALBUMIN 3.4 g/dL (3.4-5.0); ALBUMIN/GLOBULIN RATIO 0.9 (1.0-1.7); TOTAL BILIRUBIN 0.3 mg/dL (0.2-1.0); TOTAL PROTEIN 7.3 g/dL (6.4-8.2)
[2018-06-17 02:07] LABS: BACTERIA,URINE FEW /HPF (0-FEW); RBC,URINE OCC /HPF (0-2); SQUAMOUS EPITHELIAL CELL,UR MANY /LPF; WBC,URINE OCC /HPF (0-4)
--- NOTE | 2018-06-17 02:19 | PHYS DOC ---
Past Medical History Past Medical History: Hypothyroid Additional Past Medical Histor: DOES NOT SEE PHYSICIAN OTHER THAN ED VISITS NEEDED PER DAUGHTER. Past Surgical History: Cholecystectomy Alcohol Use: None Drug Use: None Adult General Chief Complaint Chief Complaint: NAUSEA/VOMITING/DIARRHA HPI HPI Patient is a 57 year old female presenting with abdominal pain and vomiting. She has had upper abdominal pain described as burning and sharp associated with vomiting occasionally it is red in color. No fever no diarrhea does have crampy pain radiating diffusely was seen here the other day had a normal CAT scan has been taking Motrin frequently she says it's not helping her abdominal pain affect is getting worse. Review of Systems Review of Systems Constitutional: Denies fever or chills [] Eyes: Denies change in visual acuity, redness, or eye pain [] HENT: Denies nasal congestion or sore throat [] Respiratory: Denies cough or shortness of breath [] Cardiovascular: Negative for chest pain] : Denies dysuria or hematuria [] Musculoskeletal: Back pain noted Integument: Denies rash or skin lesions [] Neurologic: Denies headache, focal weakness or sensory changes [] Endocrine: Denies polyuria or polydipsia [] All other systems were reviewed and found to be within normal limits, except as documented in this note. Current Medications Current Medications Current Medications Medications (Trade) Dose Ordered Sig/Cj Start Time Stop Time Status Last Admin Dose Admin Acetaminophen/ Hydrocodone Bitart (Lortab 5/325) 2 tab 1X ONCE 06/17/18 01:45 06/17/18 01:46 DC 06/17/18 01:49 2 TAB Famotidine (Pepcid) 20 mg 1X ONCE 06/17/18 01:45 06/17/18 01:46 DC 06/17/18 01:49 20 MG Ondansetron HCl (Zofran) 4 mg 1X ONCE 06/17/18 01:45 06/17/18 01:46 DC 06/17/18 01:48 4 MG Allergies Allergies Allergies Coded Allergies Type Severity Reaction Last Updated Verified No Known Drug Allergies 01/22/16 No Physical Exam Physical Exam Constitutional: Well developed, well nourished, no acute distress, non-toxic appearance. [] HENT: Normocephalic, atraumatic, bilateral external ears normal, oropharynx moist, no oral exudates, nose normal. [] Eyes: PERRLA, EOMI, conjunctiva normal, no discharge. [] Neck: Normal range of motion, no tenderness, supple, no stridor. [] Cardiovascular:Heart rate regular rhythm, no murmur [] Lungs & Thorax: Bilateral breath sounds clear to auscultation [] Abdomen: Bowel sounds normal, soft, epigastric tenderness, no masses, no pulsatile masses. [] Skin: Warm, dry, no erythema, no rash. [] Back: No tenderness, no CVA tenderness. [] Extremities: No tenderness, no cyanosis, no clubbing, ROM intact, no edema. [] Neurologic: Alert and oriented X 3, normal motor function, normal sensory function, no focal deficits noted. [] Psychologic: Affect normal, judgement normal, mood normal. [] Current Patient Data Vital Signs Vital Signs Date Time Temp Pulse Resp B/P (MAP) Pulse Ox O2 Delivery O2 Flow Rate FiO2 06/17/18 01:49 14 100 Room Air 06/17/18 00:55 99.0 78 153/83 (106) 99.0 Lab Values Laboratory Tests Test 06/17/18 01:15 06/17/18 01:17 White Blood Count 9.5 x10^3/uL (4.0-11.0) Red Blood Count 4.45 x10^6/uL (3.50-5.40) Hemoglobin 14.9 g/dL (12.0-15.5) Hematocrit 41.8 % (36.0-47.0) Mean Corpuscular Volume 94 fL (79-100) Mean Corpuscular Hemoglobin 34 pg (25-35) Mean Corpuscular Hemoglobin Concent 36 g/dL (31-37) Red Cell Distribution Width 13.4 % (11.5-14.5) Platelet Count 227 x10^3/uL (140-400) Neutrophils (%) (Auto) 62 % (31-73) Lymphocytes (%) (Auto) 23 % (24-48) L Monocytes (%) (Auto) 12 % (0-9) H Eosinophils (%) (Auto) 3 % (0-3) Basophils (%) (Auto) 1 % (0-3) Neutrophils # (Auto) 5.9 x10^3uL (1.8-7.7) Lymphocytes # (Auto) 2.2 x10^3/uL (1.0-4.8) Monocytes # (Auto) 1.1 x10^3/uL (0.0-1.1) Eosinophils # (Auto) 0.2 x10^3/uL (0.0-0.7) Basophils # (Auto) 0.1 x10^3/uL (0.0-0.2) Sodium Level 140 mmol/L (136-145) Potassium Level 4.3 mmol/L (3.5-5.1) Chloride Level 105 mmol/L (98-107) Carbon Dioxide Level 23 mmol/L (21-32) Anion Gap 12 (6-14) Blood Urea Nitrogen 10 mg/dL (7-20) Creatinine 0.6 mg/dL (0.6-1.0) Estimated GFR (Cockcroft-Gault) 102.7 BUN/Creatinine Ratio 17 (6-20) Glucose Level 109 mg/dL (70-99) H Calcium Level 9.4 mg/dL (8.5-10.1) Total Bilirubin 0.3 mg/dL (0.2-1.0) Aspartate Amino Transferase (AST) 31 U/L (15-37) Alanine Aminotransferase (ALT) 45 U/L (14-59) Alkaline Phosphatase 131 U/L (46-116) H Troponin I Quantitative < 0.017 ng/mL (0.000-0.055) Total Protein 7.3 g/dL (6.4-8.2) Albumin 3.4 g/dL (3.4-5.0) Albumin/Globulin Ratio 0.9 (1.0-1.7) L Lipase 110 U/L (73-393) Urine Collection Type Unknown Urine Color Yellow Urine Clarity Clear Urine pH 6.0 Urine Specific [place] 1.020 Urine Protein Negative mg/dL (NEG-TRACE) Urine Glucose (UA) Negative mg/dL (NEG) Urine Ketones (Stick) Negative mg/dL (NEG) Urine Blood Trace (NEG) Urine Nitrite Negative (NEG) Urine Bilirubin Negative (NEG) Urine Urobilinogen Dipstick 0.2 mg/dL (0.2 mg/dL) Urine Leukocyte Esterase Negative (NEG) Urine RBC Occ /HPF (0-2) Urine WBC Occ /HPF (0-4) Urine Squamous Epithelial Cells Many /LPF Urine Bacteria Few /HPF (0-FEW) Urine Mucus Marked /LPF Laboratory Tests 06/17/18 01:15 Laboratory Tests 06/17/18 01:15 EKG EKG []EKG shows a normal sinus rhythm rate of 67 there are some nonspecific ST changes laterally but no acute ST elevation PA was noted. QTC 432 interpreted by me time of encounter. Radiology/Procedures Radiology/Procedures [] Impressions: IMPRESSION: Probable small ovarian cysts bilaterally with the largest measuring approximately 2 cm in size on the right. No other focal abnormality seen in the abdomen or pelvis. Review the above CT from 2 days ago Course & Med Decision Making Course & Med Decision Making Pertinent Labs and Imaging studies reviewed. (See chart for details) []57-year-old male presenting with upper abdominal discomfort recent CT scan was normal labs look unremarkable. Patient is taking Motrin regularly I suspect component of gastritis patient was given symptomatic treatment in the emergency room for this with some improvement encouraged to avoid Motrin avoid alcohol take the above medications including omeprazole and follow-up as needed with primary care if symptoms do not improve. No evidence of hepatitis pancreatitis renal failure UTI or acute PA. Dragon Disclaimer Dragon Disclaimer This electronic medical record was generated, in whole or in part, using a voice recognition dictation system. Departure Departure Impression: Primary Impression: Epigastric abdominal pain Disposition: HOME, SELF-CARE Condition: STABLE Referrals: NO PCP (PCP) Patient Instructions: Gastritis, Adult, [id number] Additional Instructions: dont take motrin Scripts Omeprazole (OMEPRAZOLE) 40 Mg Capsule.dr 1 CAP PO DAILY, #30 CAP 3 Refills Prov: DORIE MURPHY MD 06/17/18 Ondansetron Hcl (ZOFRAN) 4 Mg Tablet 4 MG PO PRN TID PRN for NAUSEA/VOMITING, #15 nausea/vomiting Prov: DORIE MURPHY MD 06/17/18 Hydrocodone/Apap 5-325 (NORCO 5-325 TABLET) 1 Each Tablet 1-2 EACH PO PRN Q6HRS PRN for PAIN, #15 as needed for pain Prov: DORIE MURPHY MD 06/17/18 DORIE MURPHY MD Jun 17, 2018 02:18
[2018-06-17 02:30] VITALS: BP 98/62
[2018-06-17] MEDS ORDERED: fentaNYL PF VIAL 100 MCG/2 ML VIAL IV ONE (02:45)
--- NOTE | 2018-06-18 07:05 | EKG ---
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
== END 2018-06-17 02:50 | disposition home or self-care (01) ==
LOC: ER 00:50
DX: R10.13 Epigastric pain (principal); R11.2 Nausea with vomiting, unspecified; E03.9 Hypothyroidism, unspecified; Z90.49 Acquired absence of other specified parts of digestive tract
CPT/HCPCS: 36415; 80053; 81001; 83690; 84484; 85025; 93005; 96374; 99284; J2405

== ENCOUNTER 2019-06-10 10:24 | Emergency (ER) | payer SELFPAY ==
[~2019-06-10] VITALS: Ht 152.4 cm; Wt 78.0 kg
[~2019-06-10 10:24] MED LIST changes: +HYDR-3164 PO; +OMEP-229 PO; -OMEP20CA9 PO; +OMEP40CA45 PO; +ONDA4TAB7 PO
[2019-06-10 11:04] VITALS: BP 157/68
[2019-06-10 11:44] LABS: BILIRUBIN,URINE NEGATIVE (NEG); CLARITY,URINE CLEAR; COLOR,URINE YELLOW; NITRITE,URINE NEGATIVE (NEG); PROTEIN,URINE NEGATIVE (NEG-TRACE); UROBILINOGEN,URINE 0.2 mg/dL (0.2 mg/dL)
[2019-06-10 11:58] LABS: BACTERIA,URINE FEW /HPF (0-FEW); RBC,URINE OCC /HPF (0-2); SQUAMOUS EPITHELIAL CELL,UR MANY /LPF
[2019-06-10 11:59] LABS: YEAST,URINE PRESENT /HPF
[2019-06-10] MEDS ORDERED: FLUC150T PO (12:27)
--- NOTE | 2019-06-10 12:27 | PHYS DOC ---
Past Medical History Past Medical History: Hypothyroid Additional Past Medical Histor: DOES NOT SEE PHYSICIAN OTHER THAN ED VISITS NEEDED PER DAUGHTER. Past Surgical History: Cholecystectomy Alcohol Use: None Drug Use: None Adult General Chief Complaint Chief Complaint: VAGINAL PROBLEM HPI HPI Patient is a 58 year old Lao-speaking female with history of hypothyroidism presenting to the ED today complaining of vaginal discharge with pain and irritation that began one year ago and has gotten worse in the last 7 days. Patient reports being seen at a local clinic a week ago and was given a prescription cream but she doesn't know the name. She states the cream has not improved her symptoms. Denies any concerns for STDs. Daughter Interpreted for [place] Review of Systems Review of Systems Constitutional: Denies fever or chills [] Eyes: Denies change in visual acuity, redness, or eye pain [] HENT: Denies nasal congestion or sore throat [] Respiratory: Denies cough or shortness of breath [] Cardiovascular: No additional information not addressed in HPI [] GI: Denies abdominal pain, nausea, vomiting, bloody stools or diarrhea [] Female -reports vaginal discharge : Denies dysuria or hematuria [] Musculoskeletal: Denies back pain or joint pain [] Integument: Denies rash or skin lesions [] Neurologic: Denies headache, focal weakness or sensory changes [] All other systems were reviewed and found to be within normal limits, except as documented in this note. Allergies Allergies Allergies Coded Allergies Type Severity Reaction Last Updated Verified No Known Drug Allergies 01/22/16 No Physical Exam Physical Exam Constitutional: Well developed, well nourished, no acute distress, non-toxic appearance. [] HENT: Normocephalic, atraumatic, bilateral external ears normal, oropharynx moist, no oral exudates, nose normal. [] Eyes: PERRLA, EOMI, conjunctiva normal, no discharge. [] Neck: Normal range of motion, no tenderness, supple, no stridor. [] Cardiovascular:Heart rate regular rhythm, no murmur [] Lungs & Thorax: Bilateral breath sounds clear to auscultation [] Abdomen: Bowel sounds normal, soft, no tenderness, no masses, no pulsatile masses. [] Pelvic exam-external pelvic appears irritated. Cervix is not visualized due to body habitus. No CMT, no adnexal tenderness, trace amount of white discharge in the vaginal vault. Skin: Warm, dry, no erythema, no rash. [] Back: No tenderness, no CVA tenderness. [] Extremities: No tenderness, no cyanosis, no clubbing, ROM intact, no edema. [] Neurologic: Alert and oriented X 3, normal motor function, normal sensory function, no focal deficits noted. [] Psychologic: Affect normal, judgement normal, mood normal. [] Current Patient Data Vital Signs Vital Signs Date Time Temp Pulse Resp B/P (MAP) Pulse Ox O2 Delivery O2 Flow Rate FiO2 06/10/19 11:04 97.9 66 16 157/68 (97) 99 Room Air 97.9 Lab Values Laboratory Tests Test 06/10/19 11:20 Urine Collection Type Void Urine Color Yellow Urine Clarity Clear Urine pH 6.0 Urine Specific [place] 1.015 Urine Protein Negative mg/dL (NEG-TRACE) Urine Glucose (UA) Negative mg/dL (NEG) Urine Ketones (Stick) Negative mg/dL (NEG) Urine Blood Negative (NEG) Urine Nitrite Negative (NEG) Urine Bilirubin Negative (NEG) Urine Urobilinogen Dipstick 0.2 mg/dL (0.2 mg/dL) Urine Leukocyte Esterase Negative (NEG) Urine RBC Occ /HPF (0-2) Urine WBC 1-4 /HPF (0-4) Urine Squamous Epithelial Cells Many /LPF Urine Bacteria Few /HPF (0-FEW) Urine Mucus Slight /LPF Urine Yeast Present /HPF Microbiology 06/10/19 Wet Prep - Final, Complete EKG EKG [] Radiology/Procedures Radiology/Procedures [] Course & Med Decision Making Course & Med Decision Making Pertinent Labs and Imaging studies reviewed. (See chart for details) This is a 58-year-old female patient presenting to the ED today complaining of vaginal discharge with pain and irritation for 1 year. Patient is currently using the prescription cream she got a week ago from a different clinic. She does not know the name of the prescription. Urine analysis is negative for infection, noted for yeast. Wet prep negative. Discharged with fluconazole. Follow-up with her local clinic in one to 2 weeks. Dragon Disclaimer Dragon Disclaimer This electronic medical record was generated, in whole or in part, using a voice recognition dictation system. Departure Departure Impression: Primary Impression: Yeast infection Disposition: 01 HOME, SELF-CARE Condition: STABLE Referrals: NO PCP (PCP) follow up with your clinic in 1-2 weeks Patient Instructions: Mariya Infection, Adult Additional Instructions: You were evaluated in the emergency room and noted to have a yeast infection. Use the medicine prescribed as ordered. Follow-up with your own doctor next week. Continue using the cream you have at home. Scripts Fluconazole (DIFLUCAN) 150 Mg Tablet 1 TAB PO ONCE, #1 TAB 1 Refill Prov: RENA LOZADA APRN 06/10/19 RENA LOZADA APRN Jun 10, 2019 12:27
[2019-06-11 19:09] LABS: GC PROBE Negative (Negative)
== END 2019-06-10 12:33 | disposition home or self-care (01) ==
LOC: ER 10:24
DX: B37.3 Candidiasis of vulva and vagina (principal); E03.9 Hypothyroidism, unspecified; Z90.49 Acquired absence of other specified parts of digestive tract
CPT/HCPCS: 81001; 87491; 87591; 99284; Q0111

== ENCOUNTER 2019-07-01 08:23 | Emergency (ER) | payer SELFPAY ==
[~2019-07-01] VITALS: Ht 152.4 cm; Wt 78.0 kg
[~2019-07-01 08:23] MED LIST changes: +FLUC150T PO; -OMEP-229 PO; +OMEP20CA16 PO
[2019-07-01 09:24] LABS: BASO % 0 % (0-3); EOS # 0.3 x10^3/uL (0.0-0.7); EOS % 3 % (0-3); HEMATOCRIT 30.7 % (36.0-47.0); HEMOGLOBIN 9.8 g/dL (12.0-15.5); LYMPH # 2.3 x10^3/uL (1.0-4.8); LYMPH % 23 % (24-48); MEAN CORPUSCULAR HEMOGLOBIN 23 pg (25-35); MEAN CORPUSCULAR HGB CONC 32 g/dL (31-37); MEAN CORPUSCULAR VOLUME 72 fL (79-100); MONO # 0.7 x10^3/uL (0.0-1.1); MONO % 7 % (0-9); NEUT # 6.7 x10^3/uL (1.8-7.7); NEUT % 67 % (31-73); PLATELET COUNT 372 x10^3/uL (140-400); RED BLOOD COUNT 4.24 x10^6/uL (3.50-5.40); RED CELL DISTRIBUTION WIDTH 17.5 % (11.5-14.5); WHITE BLOOD COUNT 10.1 x10^3/uL (4.0-11.0)
--- NOTE | 2019-07-01 09:34 | RAD ---
Pelvis single view COMPARISON: None. INDICATION: Vaginal bleeding. FINDINGS: The pelvic ring is intact. The bilateral femoral heads are well-seated in the acetabulum. The hips are in slight external rotation, limiting evaluation of the femoral necks. The soft tissues show bilateral rounded calcifications in the pelvis compatible with phleboliths and there is soft tissue fullness in the rectal vault compatible with a moderate amount of colonic stool. No calcified masses suggestive of uterine fibroids in the pelvis are seen. There is no abnormal soft tissue gas or radiopaque foreign body. IMPRESSION: Negative pelvis x-ray. Electronically signed by: Elian Guevara MD (07/01/2019 9:31 AM) [facility]
[2019-07-01 09:36] LABS: CALCIUM 8.8 mg/dL (8.5-10.1); CREATININE 0.8 mg/dL (0.6-1.0); GFR 73.4; POTASSIUM 3.9 mmol/L (3.5-5.1)
[2019-07-01 09:42] LABS: ALBUMIN 3.4 g/dL (3.4-5.0); ALBUMIN/GLOBULIN RATIO 0.9 (1.0-1.7); TOTAL BILIRUBIN 0.2 mg/dL (0.2-1.0); TOTAL PROTEIN 7.4 g/dL (6.4-8.2)
[2019-07-01 09:58] LABS: BILIRUBIN,URINE NEGATIVE (NEG); CLARITY,URINE CLEAR; COLOR,URINE YELLOW; NITRITE,URINE NEGATIVE (NEG); PROTEIN,URINE NEGATIVE (NEG-TRACE); UROBILINOGEN,URINE 0.2 mg/dL (0.2 mg/dL)
[2019-07-01 10:07] LABS: SQUAMOUS EPITHELIAL CELL,UR FEW /LPF
[2019-07-01 10:08] LABS: BACTERIA,URINE 0 /HPF (0-FEW); WBC,URINE OCC /HPF (0-4)
--- NOTE | 2019-07-01 10:56 | RAD ---
PELVIS COMPLETE History: Postmenopausal bleeding. Comparison: December 17, 2017. Technique: Grayscale and color Doppler imaging of the pelvis was performed using transabdominal technique. Findings: The uterus measures 9.2 x 5.8 x 4.4 cm in length. Uterus has an unremarkable appearance. The endometrial stripe measures 4.8 mm. Right ovary measures 3.1 x 2.2 x 2.7 cm. Left ovarian cystic lesion measures 2.3 x 1.8 x 1.8 cm. Left ovary measures 2.4 x 2.4 x 1.5 cm and is unremarkable. No adnexal masses are seen. IMPRESSION: 1. Small right ovarian cyst. Recommend one-year follow-up. 2. Otherwise, unremarkable pelvic ultrasound. Electronically signed by: Avelino Duarte DO (07/01/2019 10:53 AM) [id number]
[2019-07-01 11:05] VITALS: BP 130/71
[2019-07-01] MEDS ORDERED: IV NORMAL SALINE 500ML BAG 500 ML IV ONE (11:15)
[2019-07-01] MEDS ORDERED: FERR325T14 PO (11:20)
[2019-07-01] MEDS ORDERED: HYDR-3164 PO (11:20)
--- NOTE | 2019-07-01 11:21 | PHYS DOC ---
Past Medical History Past Medical History: Hypothyroid Additional Past Medical Histor: DOES NOT SEE PHYSICIAN OTHER THAN ED VISITS NEEDED PER DAUGHTER. Past Surgical History: Cholecystectomy Alcohol Use: None Drug Use: None Adult General Chief Complaint Chief Complaint: VAGINAL BLEEDING HPI HPI Patient is a 58 year old [place] speaking female patient with history of hypothyroidism who presents with complaining of vaginal bleeding. Patient states she had her last menstruation in July 2018. Patient complaining of vaginal bleeding for the last 4 days with passing large amount of blood and complaining of dizziness since this morning without chest pain and shortness of breath. Patient complaining of mild abdominal cramping pain. Review of Systems Review of Systems Constitutional: Denies fever or chills [] Eyes: Denies change in visual acuity, redness, or eye pain [] HENT: Denies nasal congestion or sore throat [] Respiratory: Denies cough or shortness of breath [] Cardiovascular: No additional information not addressed in HPI [] GI: Reports abdominal pain, denies nausea, vomiting, bloody stools or diarrhea [] : Denies dysuria or hematuria [] Musculoskeletal: Denies back pain or joint pain [] Integument: Denies rash or skin lesions [] Neurologic: Denies headache, focal weakness or sensory changes [] Endocrine: Denies polyuria or polydipsia [] All other systems were reviewed and found to be within normal limits, except as documented in this note. Current Medications Current Medications Current Medications Medications (Trade) Dose Ordered Sig/Cj Start Time Stop Time Status Last Admin Dose Admin Acetaminophen/ Hydrocodone Bitart (Lortab 5/325) 1 tab 1X ONCE 07/01/19 11:30 07/01/19 11:31 DC 07/01/19 11:31 1 TAB Sodium Chloride 500 ml @ 500 mls/hr 1X ONCE 07/01/19 11:15 07/01/19 12:14 DC 07/01/19 11:28 500 MLS/HR Allergies Allergies Allergies Coded Allergies Type Severity Reaction Last Updated Verified No Known Drug Allergies 01/22/16 No Physical Exam Physical Exam Constitutional: Well developed, well nourished, mild distress, non-toxic appearance, mild pallor. [] HENT: Normocephalic, atraumatic. Eyes: PERRLA, EOMI, conjunctiva normal, no discharge. [] Neck: Normal range of motion, no tenderness, supple, no stridor. [] Cardiovascular:Heart rate regular rhythm, no murmur [] Lungs & Thorax: Bilateral breath sounds clear to auscultation [] Abdomen: Bowel sounds normal, soft, no tenderness, no masses, no pulsatile masses. [] Skin: Warm, dry, no erythema, no rash. [] Back: No tenderness, no CVA tenderness. [] Extremities: No tenderness, no cyanosis, no clubbing, ROM intact, no edema. [] Neurologic: Alert and oriented X 3, no focal deficits noted. [] Psychologic: Affect normal, judgement normal, mood normal. [] Current Patient Data Vital Signs Vital Signs Date Time Temp Pulse Resp B/P (MAP) Pulse Ox O2 Delivery O2 Flow Rate FiO2 07/01/19 11:31 14 97 Room Air 07/01/19 11:05 71 130/71 (90) 07/01/19 08:36 97.9 97.9 Lab Values Laboratory Tests Test 07/01/19 08:37 07/01/19 09:10 Urine Collection Type Unknown Urine Color Yellow Urine Clarity Clear Urine pH 6.0 Urine Specific [place] 1.020 Urine Protein Negative mg/dL (NEG-TRACE) Urine Glucose (UA) Negative mg/dL (NEG) Urine Ketones (Stick) Negative mg/dL (NEG) Urine Blood Large (NEG) Urine Nitrite Negative (NEG) Urine Bilirubin Negative (NEG) Urine Urobilinogen Dipstick 0.2 mg/dL (0.2 mg/dL) Urine Leukocyte Esterase Negative (NEG) Urine RBC 6-10 /HPF (0-2) Urine WBC Occ /HPF (0-4) Urine Squamous Epithelial Cells Few /LPF Urine Bacteria 0 /HPF (0-FEW) Urine Mucus Mod /LPF White Blood Count 10.1 x10^3/uL (4.0-11.0) Red Blood Count 4.24 x10^6/uL (3.50-5.40) Hemoglobin 9.8 g/dL (12.0-15.5) L Hematocrit 30.7 % (36.0-47.0) L Mean Corpuscular Volume 72 fL (79-100) L Mean Corpuscular Hemoglobin 23 pg (25-35) L Mean Corpuscular Hemoglobin Concent 32 g/dL (31-37) Red Cell Distribution Width 17.5 % (11.5-14.5) H Platelet Count 372 x10^3/uL (140-400) Neutrophils (%) (Auto) 67 % (31-73) Lymphocytes (%) (Auto) 23 % (24-48) L Monocytes (%) (Auto) 7 % (0-9) Eosinophils (%) (Auto) 3 % (0-3) Basophils (%) (Auto) 0 % (0-3) Neutrophils # (Auto) 6.7 x10^3/uL (1.8-7.7) Lymphocytes # (Auto) 2.3 x10^3/uL (1.0-4.8) Monocytes # (Auto) 0.7 x10^3/uL (0.0-1.1) Eosinophils # (Auto) 0.3 x10^3/uL (0.0-0.7) Basophils # (Auto) 0.0 x10^3/uL (0.0-0.2) Sodium Level 137 mmol/L (136-145) Potassium Level 3.9 mmol/L (3.5-5.1) Chloride Level 105 mmol/L (98-107) Carbon Dioxide Level 23 mmol/L (21-32) Anion Gap 9 (6-14) Blood Urea Nitrogen 17 mg/dL (7-20) Creatinine 0.8 mg/dL (0.6-1.0) Estimated GFR (Cockcroft-Gault) 73.4 BUN/Creatinine Ratio 21 (6-20) H Glucose Level 106 mg/dL (70-99) H Calcium Level 8.8 mg/dL (8.5-10.1) Total Bilirubin 0.2 mg/dL (0.2-1.0) Aspartate Amino Transferase (AST) 20 U/L (15-37) Alanine Aminotransferase (ALT) 21 U/L (14-59) Alkaline Phosphatase 129 U/L (46-116) H Total Protein 7.4 g/dL (6.4-8.2) Albumin 3.4 g/dL (3.4-5.0) Albumin/Globulin Ratio 0.9 (1.0-1.7) L Lipase 115 U/L (73-393) Laboratory Tests 07/01/19 09:10 Laboratory Tests 07/01/19 09:10 EKG EKG [] Radiology/Procedures Radiology/Procedures [facility] [address] [place] [address] IMAGING REPORT Signed PATIENT: SAURAV BILLY MACCOUNT: [id number] : 1960 LOCATION: ER AGE: 58 SEX: F EXAM STATUS: REG ER ORD. PHYSICIAN: SULAIMAN BARNSE MD REASON: postmenopausal vaginal bleeding PROCEDURE: PELVIS COMPLETE PELVIS COMPLETE History: Postmenopausal bleeding. Comparison: December 17, 2017. Technique: Grayscale and color Doppler imaging of the pelvis was performed using transabdominal technique. Findings: The uterus measures 9.2 x 5.8 x 4.4 cm in length. Uterus has an unremarkable appearance. The endometrial stripe measures 4.8 mm. Right ovary measures 3.1 x 2.2 x 2.7 cm. Left ovarian cystic lesion measures 2.3 x 1.8 x 1.8 cm. Left ovary measures 2.4 x 2.4 x 1.5 cm and is unremarkable. No adnexal masses are seen. IMPRESSION: 1. Small right ovarian cyst. Recommend one-year follow-up. 2. Otherwise, unremarkable pelvic ultrasound. Electronically signed by: Avelino Duarte DO (07/01/2019 10:53 AM) [id number] DICTATED and SIGNED BY: AVELINO DUARTE DO DATE: 07/01/19 1053 Course & Med Decision Making Course & Med Decision Making Pertinent Labs and Imaging studies reviewed. (See chart for details) Evaluation of patient in ER showed 58-year-old male patient with complaining of vaginal bleeding. Patient had unremarkable physical exam and vital sign. Pelvic ultrasound was unremarkable except for a small right ovarian cyst. She had hemoglobin of 14 in 2019 that dropped to 9.8 today. Patient treated with IV fluid and no cough with improvement of her pain. On-call [facility] Dr. Antony Duarte was consulted at 1100 and recommended outpatient follow-up with [facility] office. I've spoken with the patient and/or caregivers. I've explained the patient's condition, diagnosis and treatment plan based on information available to me at this time. I've answered the patient's and/or caregivers questions and addressed any concerns. The patient and/or caregivers have a good understanding the patient's diagnosis, condition and treatment plan as can be expected at this point. Vital signs have been stabilized. The patient's condition is stable for discharge from the emergency department. The patient will pursue further outpatient evaluation with her primary care provider or other designated consulting physician as outlined in the discharge instructions. Patient and/or caregivers are agreeable to this plan of care and follow-up instructions have been explained in detail. The patient and/or caregivers have received these instructions in written format and expressed understanding of these discharge instructions. The patient and her caregivers are aware that if any significant change in condition or worsening of symptoms should prompt him to immediately return to this of the closest emergency department. If an emergent department is not readily available I would encourage him to call 911. Dragon Disclaimer Dragon Disclaimer This electronic medical record was generated, in whole or in part, using a voice recognition dictation system. Departure Departure Impression: Primary Impression: Abnormal vaginal bleeding in postmenopausal patient Additional Impressions: Anemia Dizziness Disposition: HOME, SELF-CARE (at 11:30) Condition: IMPROVED Referrals: NO PCP (PCP) ANTONY DUARTE MD Patient Instructions: Abnormal Uterine Bleeding, Anemia, FAQs, Postmenopausal Bleeding Additional Instructions: Drink plenty of liquids Follow-up with [facility] in one or 2 days Return to ER if not getting better Thank you for visiting [facility]. We appreciate you trusting us with your care. If any additional problems come up don't hesitate to return to visit us. Please follow up with your primary care provider so they can plan additional care if needed and know about the problem that you had. If symptoms worsen come back to the Emergency Department. Any concerning symptoms that start such as chest pain, shortness of air, weakness or numbness on one side of the body, running high fevers or any other concerning symptoms return to the ER. Scripts Ferrous Sulfate (FERROUS SULFATE) 325 Mg Tablet 1 TAB PO BID, #60 TAB Prov: SULAIMAN BARNES MD 07/01/19 Hydrocodone/Apap 5-325 (NORCO 5-325 TABLET) 1 Each Tablet 1 TAB PO PRN Q6HRS PRN for PAIN, #10 TAB 0 Refills Prov: SULAIMAN BARNES MD 07/01/19 Problem Qualifiers Additional Impressions: Anemia Anemia type: unspecified type Qualified Codes: D64.9 - Anemia, unspecified SULAIMAN BARNES MD Jul 01, 2019 11:20
[2019-07-01] MEDS ORDERED: HYDROcodone/APAP 5/325MG 1 TAB TABLET PO ONE (11:30)
== END 2019-07-01 11:38 | disposition home or self-care (01) ==
LOC: ER 08:23
DX: N95.0 Postmenopausal bleeding (principal); R42 Dizziness and giddiness; D64.9 Anemia, unspecified; N83.291 Other ovarian cyst, right side; R10.9 Unspecified abdominal pain; E03.9 Hypothyroidism, unspecified; Z90.49 Acquired absence of other specified parts of digestive tract
CPT/HCPCS: 36415; 72170; 76856; 80053; 81001; 83690; 85025; 96360; 99285; J7040

== ENCOUNTER 2019-09-02 20:06 | Emergency (ER) | payer SELFPAY ==
[~2019-09-02] VITALS: Ht 152.4 cm; Wt 78.1 kg
[~2019-09-02 20:06] MED LIST changes: +FERR325T14 PO
[2019-09-02 20:53] LABS: BASO % 0 % (0-3); EOS # 0.2 x10^3/uL (0.0-0.7); EOS % 2 % (0-3); HEMATOCRIT 39.4 % (36.0-47.0); HEMOGLOBIN 13.3 g/dL (12.0-15.5); LYMPH # 0.8 x10^3/uL (1.0-4.8); LYMPH % 11 % (24-48); MEAN CORPUSCULAR HEMOGLOBIN 29 pg (25-35); MEAN CORPUSCULAR HGB CONC 34 g/dL (31-37); MEAN CORPUSCULAR VOLUME 85 fL (79-100); MONO # 1.1 x10^3/uL (0.0-1.1); MONO % 14 % (0-9); NEUT # 5.7 x10^3/uL (1.8-7.7); NEUT % 72 % (31-73); PLATELET COUNT 214 x10^3/uL (140-400); RED BLOOD COUNT 4.61 x10^6/uL (3.50-5.40); RED CELL DISTRIBUTION WIDTH 24.9 % (11.5-14.5); WHITE BLOOD COUNT 7.9 x10^3/uL (4.0-11.0)
[2019-09-02 21:03] LABS: CALCIUM 8.6 mg/dL (8.5-10.1); CREATININE 0.8 mg/dL (0.6-1.0); GFR 73.4; POTASSIUM 3.4 mmol/L (3.5-5.1)
[2019-09-02 21:08] LABS: ALBUMIN 3.6 g/dL (3.4-5.0); ALBUMIN/GLOBULIN RATIO 0.9 (1.0-1.7); TOTAL BILIRUBIN 0.2 mg/dL (0.2-1.0); TOTAL PROTEIN 7.5 g/dL (6.4-8.2)
[2019-09-02 21:10] LABS: INFLUENZA A PATIENT NEGATIVE (NEGATIVE); INFLUENZA B PATIENT NEGATIVE (NEGATIVE)
--- NOTE | 2019-09-02 21:12 | RAD ---
Exam: Chest one view INDICATION: Cough, fever TECHNIQUE: Frontal view of the chest Comparisons: 02/22/2018 FINDINGS: The cardiomediastinal silhouette and pulmonary vessels are within normal limits. The lung and pleural spaces are clear. IMPRESSION: No acute cardiopulmonary process. Electronically signed by: Radha Rossi MD (09/02/2019 9:09 PM) [id number]
[2019-09-02] MEDS ORDERED: AZIT1PAC PO (21:23)
--- NOTE | 2019-09-02 21:24 | PHYS DOC ---
Past Medical History Past Medical History: Hypothyroid Additional Past Medical Histor: DOES NOT SEE PHYSICIAN OTHER THAN ED VISITS NEEDED PER DAUGHTER. Past Surgical History: Cholecystectomy Smoking Status: Light Tobacco Smoker Alcohol Use: None Drug Use: None Adult General Chief Complaint Chief Complaint: MULTIPLE COMPLAINTS [facility] HPI Patient is a 58 year old resents with multiple complaints which include sore throat cough nonproductive bilateral ear pain headache runny stuffy nose and fever. Patient states symptoms of been ongoing for 2 days. Fevers are subjective she states she did not take them. In the ER patient is febrile. Review of Systems Review of Systems Constitutional: positive fever [] Eyes: Denies change in visual acuity, redness, or eye pain [] HENT: positive nasal congestion and sore throat [] Respiratory: positive cough [] Cardiovascular: No additional information not addressed in HPI [] GI: Denies abdominal pain, nausea, vomiting, bloody stools or diarrhea [] : Denies dysuria or hematuria [] Musculoskeletal: Denies back pain or joint pain [] Integument: Denies rash or skin lesions [] Neurologic: Denies headache, focal weakness or sensory changes [] Endocrine: Denies polyuria or polydipsia [] All other systems were reviewed and found to be within normal limits, except as documented in this note. Allergies Allergies Allergies Coded Allergies Type Severity Reaction Last Updated Verified No Known Drug Allergies 01/22/16 No Physical Exam Physical Exam Constitutional: Well developed, well nourished, no acute distress, non-toxic appearance. [] HENT: Normocephalic, atraumatic, bilateral external ears normal, oropharynx marie st, no oral exudates, nose normal. [] Eyes: PERRLA, EOMI, conjunctiva normal, no discharge. [] Neck: Normal range of motion, no tenderness, supple, no stridor. [] Cardiovascular:Heart rate regular rhythm, no murmur [] Lungs & Thorax: Bilateral breath sounds clear to auscultation [] Abdomen: Bowel sounds normal, soft, no tenderness, no masses, no pulsatile masses. [] Skin: Warm, dry, no erythema, no rash. [] Back: No tenderness, no CVA tenderness. [] Extremities: No tenderness, no cyanosis, no clubbing, ROM intact, no edema. [] Neurologic: Alert and oriented X 3, normal motor function, normal sensory function, no focal deficits noted. [] Psychologic: Affect normal, judgement normal, mood normal. [] Current Patient Data Vital Signs Vital Signs Date Time Temp Pulse Resp B/P (MAP) Pulse Ox O2 Delivery O2 Flow Rate FiO2 09/02/19 20:20 98.8 107 16 143/68 (93) 98 Room Air 98.8 Lab Values Laboratory Tests Test 09/02/19 20:40 White Blood Count 7.9 x10^3/uL (4.0-11.0) Red Blood Count 4.61 x10^6/uL (3.50-5.40) Hemoglobin 13.3 g/dL (12.0-15.5) Hematocrit 39.4 % (36.0-47.0) Mean Corpuscular Volume 85 fL (79-100) Mean Corpuscular Hemoglobin 29 pg (25-35) Mean Corpuscular Hemoglobin Concent 34 g/dL (31-37) Red Cell Distribution Width 24.9 % (11.5-14.5) H Platelet Count 214 x10^3/uL (140-400) Neutrophils (%) (Auto) 72 % (31-73) Lymphocytes (%) (Auto) 11 % (24-48) L Monocytes (%) (Auto) 14 % (0-9) H Eosinophils (%) (Auto) 2 % (0-3) Basophils (%) (Auto) 0 % (0-3) Neutrophils # (Auto) 5.7 x10^3/uL (1.8-7.7) Lymphocytes # (Auto) 0.8 x10^3/uL (1.0-4.8) L Monocytes # (Auto) 1.1 x10^3/uL (0.0-1.1) Eosinophils # (Auto) 0.2 x10^3/uL (0.0-0.7) Basophils # (Auto) 0.0 x10^3/uL (0.0-0.2) Platelet Estimate Pending Sodium Level 141 mmol/L (136-145) Potassium Level 3.4 mmol/L (3.5-5.1) L Chloride Level 105 mmol/L (98-107) Carbon Dioxide Level 24 mmol/L (21-32) Anion Gap 12 (6-14) Blood Urea Nitrogen 8 mg/dL (7-20) Creatinine 0.8 mg/dL (0.6-1.0) Estimated GFR (Cockcroft-Gault) 73.4 BUN/Creatinine Ratio 10 (6-20) Glucose Level 114 mg/dL (70-99) H Calcium Level 8.6 mg/dL (8.5-10.1) Total Bilirubin 0.2 mg/dL (0.2-1.0) Aspartate Amino Transferase (AST) 33 U/L (15-37) Alanine Aminotransferase (ALT) 37 U/L (14-59) Alkaline Phosphatase 100 U/L (46-116) Total Protein 7.5 g/dL (6.4-8.2) Albumin 3.6 g/dL (3.4-5.0) Albumin/Globulin Ratio 0.9 (1.0-1.7) L Influenza Type A Antigen Negative (NEGATIVE) Influenza Type B Antigen Negative (NEGATIVE) Laboratory Tests 09/02/19 20:40 Laboratory Tests 09/02/19 20:40 EKG EKG [] Radiology/Procedures Radiology/Procedures [] Impressions: Chest x-ray negative Course & Med Decision Making Course & Med Decision Making Pertinent Labs and Imaging studies reviewed. (See chart for details) []Patient was evaluated for chief complaint. Workup consisted of laboratory a nalysis radiologic imaging. Chest x-ray per radiologist no acute abnormalities. Patient influenza negative. Patient CBC within normal limits. Dragon Disclaimer Dragon Disclaimer This electronic medical record was generated, in whole or in part, using a voice recognition dictation system. Departure Departure Impression: Primary Impression: Viral syndrome Additional Impression: Upper respiratory infection Disposition: 01 HOME, SELF-CARE Condition: STABLE Referrals: NO PCP (PCP) Patient Instructions: Upper Respiratory Infection, Adult Scripts Azithromycin (ZITHROMAX PACKET) 1 Gm Packet 1 PACKET PO ONCE, #1 PACKET 2 tablets day 1 1 tablet day 2-5 Prov: NICOLE CORNEJO DO 09/02/19 Problem Qualifiers Additional Impression: Upper respiratory infection URI type: unspecified viral URI Qualified Codes: J06.9 - Acute upper respiratory infection, unspecified NICOLE CORNEJO DO Sep 02, 2019 21:24
[2019-09-02 21:59] LABS: PLT ESTIMATE ADEQUATE (ADEQUATE)
[2019-09-02 22:00] VITALS: BP 119/70
[2019-09-02 22:00] LABS: ANISOCYTOSIS MOD
== END 2019-09-02 22:12 | disposition home or self-care (01) ==
LOC: ER 20:06
DX: J06.9 Acute upper respiratory infection, unspecified (principal); B34.9 Viral infection, unspecified; H92.03 Otalgia, bilateral; R51 Headache; R50.9 Fever, unspecified; E03.9 Hypothyroidism, unspecified; Z90.49 Acquired absence of other specified parts of digestive tract; Z87.891 Personal history of nicotine dependence
CPT/HCPCS: 36415; 71045; 80053; 85025; 87804; 99284

== ENCOUNTER 2019-11-04 13:26 | Emergency (ER) | payer SELFPAY ==
[~2019-11-04] VITALS: Ht 152.4 cm; Wt 82.0 kg
[~2019-11-04 13:26] MED LIST changes: +AZIT1PAC PO; -PHEN28OI RC; +PHEN28OI8 RC; +SENN-182 PO; -SENN-80 PO
[2019-11-04 13:33] VITALS: BP 132/96
--- NOTE | 2019-11-04 14:42 | RAD ---
EXAM: ANKLE RIGHT 3V 11/04/2019 1:44 PM CLINICAL INDICATION:Ankle injury, patient fell yesterday, twisting ankle COMPARISON:None TECHNIQUE:3 views of the right ankle FINDINGS:No acute fracture. Alignment normal. Joint spaces are maintained. There are small plantar and Achilles enthesophytes. Mild soft tissue swelling, greatest laterally. IMPRESSION:No acute osseous abnormality. Mild soft tissue swelling, greatest laterally. Electronically signed by: Jenise Fay MD (11/04/2019 2:38 PM) [id number]
--- NOTE | 2019-11-04 14:52 | PHYS DOC ---
Past Medical History Past Medical History: Hypothyroid Additional Past Medical Histor: DOES NOT SEE PHYSICIAN OTHER THAN ED VISITS NEEDED PER DAUGHTER. Past Surgical History: Cholecystectomy Smoking Status: Never Smoker Alcohol Use: None Drug Use: None General Adult EDM: Chief Complaint: MECHANICAL FALL HPI: HPI: Patient is a 58-year-old female presents with a right ankle injury. This happened last night when she tripped down a couple of steps. She states she everted her right ankle. She denies any other injury. She states the pain is most intense when she tries to walk. [] Review of Systems: Review of Systems: Constitutional: Denies fever or chills. [] Musculoskeletal: Per HPI [] Heart Score: Risk Factors: Risk Factors: DM, Current or recent (<one month) smoker, HTN, HLP, family history of CAD, obesity. Risk Scores: Score 0 - 3: 2.5% MACE over next 6 weeks - Discharge Home Score 4 - 6: 20.3% MACE over next 6 weeks - Admit for Clinical Observation Score 7 - 10: 72.7% MACE over next 6 weeks - Early Invasive Strategies Allergies: Allergies: Allergies Coded Allergies Type Severity Reaction Last Updated Verified No Known Drug Allergies 01/22/16 No Physical Exam: PE: Constitutional: Well developed, well nourished, mild distress, non-toxic appearance. [] HENT: Normocephalic, atraumatic, bilateral external ears normal, oropharynx moist, no oral exudates, nose normal. [] Eyes: PERRLA, EOMI, conjunctiva normal, no discharge. [] Neck: Normal range of motion, no tenderness, supple, no stridor. [] [] Back: No tenderness, no CVA tenderness. [] Extremities: Right ankle is swollen with some lateral ecchymosis no obvious deformity [] Neurologic: Alert and oriented X 3, normal motor function, normal sensory function, no focal deficits noted. [] Psychologic: Affect normal, judgement normal, mood normal. [] Current Patient Data: Vital Signs: Vital Signs Date Time Temp Pulse Resp B/P (MAP) Pulse Ox O2 Delivery O2 Flow Rate FiO2 11/04/19 13:33 98.9 92 16 132/96 (108) 98 Room Air 98.9 EKG: EKG: [] Radiology/Procedures: Radiology/Procedures: []REASON: ankle injury,pt fell yesterday twisting ankle per son. PROCEDURE: ANKLE RIGHT 3V EXAM: ANKLE RIGHT 3V 11/04/2019 1:44 PM CLINICAL INDICATION:Ankle injury, patient fell yesterday, twisting ankle COMPARISON:None TECHNIQUE:3 views of the right ankle FINDINGS:No acute fracture. Alignment normal. Joint spaces are maintained. There are small plantar and Achilles enthesophytes. Mild soft tissue swelling, greatest laterally. IMPRESSION:No acute osseous abnormality. Mild soft tissue swelling, greatest laterally. Course & Med Decision Making: Course & Med Decision Making Pertinent Labs and Imaging studies reviewed. (See chart for details) [] Dragon Disclaimer: Dragon Disclaimer: This electronic medical record was generated, in whole or in part, using a voice recognition dictation system. Departure Departure Impression: Primary Impression: Right ankle sprain Qualified Codes: S93.401A - Sprain of unspecified ligament of right ankle, initial encounter Disposition: HOME, SELF-CARE Condition: STABLE Referrals: NO PCP (PCP) Patient Instructions: Ankle Sprain, Ankle Sprain, Acute, with Phase I Rehab- [facility], Ankle Sprain, Acute, with Phase II Rehab-[facility] MIR LARSON DO November 04, 2019 14:52
== END 2019-11-04 15:06 | disposition home or self-care (01) ==
LOC: ER 13:26
DX: S93.401A Sprain of unspecified ligament of right ankle, initial encounter (principal); E03.9 Hypothyroidism, unspecified; W10.8XXA Fall (on) (from) other stairs and steps, initial encounter; Y93.89 Activity, other specified; Y92.89 Other specified places as the place of occurrence of the external cause; Y99.8 Other external cause status
CPT/HCPCS: 73610; 99283

== ENCOUNTER 2020-02-23 15:36 | Emergency (ER) | payer SELFPAY ==
[~2020-02-23] VITALS: Ht 152.4 cm; Wt 78.0 kg
[2020-02-23] MEDS ORDERED: ONDANSETRON ODT 4 MG TAB.RAPDIS. PO ONE (16:30)
[2020-02-23 16:48] LABS: BASO % 0 % (0-3); EOS # 0.4 x10^3/uL (0.0-0.7); EOS % 6 % (0-3); HEMATOCRIT 42.1 % (36.0-47.0); HEMOGLOBIN 14.7 g/dL (12.0-15.5); LYMPH # 1.5 x10^3/uL (1.0-4.8); LYMPH % 21 % (24-48); MEAN CORPUSCULAR HEMOGLOBIN 32 pg (25-35); MEAN CORPUSCULAR HGB CONC 35 g/dL (31-37); MEAN CORPUSCULAR VOLUME 93 fL (79-100); MONO # 0.8 x10^3/uL (0.0-1.1); MONO % 11 % (0-9); NEUT # 4.4 x10^3/uL (1.8-7.7); NEUT % 62 % (31-73); PLATELET COUNT 243 x10^3/uL (140-400); RED BLOOD COUNT 4.55 x10^6/uL (3.50-5.40); RED CELL DISTRIBUTION WIDTH 13.3 % (11.5-14.5); WHITE BLOOD COUNT 7.1 x10^3/uL (4.0-11.0)
--- NOTE | 2020-02-23 16:59 | PHYS DOC ---
Past Medical History Past Medical History: Hypothyroid Additional Past Medical Histor: DOES NOT SEE PHYSICIAN OTHER THAN ED VISITS NEEDED PER DAUGHTER. (VI DAVIS COAL CRUSHER OPERATOR) Past Surgical History: Cholecystectomy (VI DAVIS COAL CRUSHER OPERATOR) Smoking Status: Never Smoker Alcohol Use: None Drug Use: None (VI DAVIS APRN) General Adult EDM: Chief Complaint: Congestion HPI: HPI: Patient is a 59 year old female who presents with 8 days of cough with chest pain with coughing and intermittent dizziness. She states that she also has a sore throat due to coughing. Patient denies nausea, vomiting, diarrhea, fever, abdominal pain, shortness of breath, headache, syncope, vision changes, numbness or tingling, focal weakness. Patient has a history of STD, hemorrhoid, sciatica, hypothyroidism, cholecystectomy. (VI DAVIS COAL CRUSHER OPERATOR) Review of Systems: Review of Systems: Constitutional: Denies fever or chills. [] Eyes: Denies change in visual acuity. [] HENT: Denies nasal congestion. + sore throat. [] Respiratory: +cough or denies shortness of breath. [] Cardiovascular: +chest pain with cough or denies edema. [] GI: Denies abdominal pain, nausea, vomiting, bloody stools or diarrhea. [] : Denies dysuria. [] Musculoskeletal: Denies back pain or joint pain. [] Integument: Denies rash. [] Neurologic: Denies headache, focal weakness or sensory changes. Intermittent dizziness [] Endocrine: Denies polyuria or polydipsia. [] Lymphatic: Denies swollen glands. [] Psychiatric: Denies depression or anxiety. [] (VI DAVIS COAL CRUSHER OPERATOR) Heart Score: Risk Factors: Risk Factors: DM, Current or recent (<one month) smoker, HTN, HLP, family history of CAD, obesity. Risk Scores: Score 0 - 3: 2.5% MACE over next 6 weeks - Discharge Home Score 4 - 6: 20.3% MACE over next 6 weeks - Admit for Clinical Observation Score 7 - 10: 72.7% MACE over next 6 weeks - Early Invasive Strategies (VI DAVIS COAL CRUSHER OPERATOR) Current Medications: Current Medications Medications (Trade) Dose Ordered Sig/Cj Start Time Stop Time Status Last Admin Dose Admin Ondansetron HCl (Zofran Odt) 4 mg 1X ONCE 02/23/20 16:30 02/23/20 16:31 DC (VI DAVIS COAL CRUSHER OPERATOR) Allergies: Allergies: Allergies Coded Allergies Type Severity Reaction Last Updated Verified No Known Drug Allergies 01/22/16 No (VI DAVIS APRN) Physical Exam: PE: Constitutional: Well developed, well nourished, no acute distress, non-toxic appearance. [] HENT: Normocephalic, atraumatic, bilateral external ears normal, oropharynx moist, no oral exudates, nose normal. Throat is reddened with 1+ swelling and no exudates. [] Eyes: PERRLA, EOMI, conjunctiva normal, no discharge. [] Neck: Normal range of motion, no tenderness, supple, no stridor. [] Cardiovascular:Heart rate regular rhythm, no murmur [] Lungs & Thorax: Bilateral upper breath sounds clear and lower diminished to auscultation [] Abdomen: Bowel sounds normal, soft, no tenderness, no masses, no pulsatile masses. [] Skin: Warm, dry, no erythema, no rash. [] Back: No tenderness, no CVA tenderness. [] Extremities: No tenderness, no cyanosis, no clubbing, ROM intact, no edema. [] Neurologic: Alert and oriented X 3, normal motor function, normal sensory function, no focal deficits noted. [] Psychologic: Affect normal, judgement normal, mood normal. [] (VI DAVIS APRN) Current Patient Data: Labs: Laboratory Tests Test 02/23/20 16:36 White Blood Count 7.1 x10^3/uL (4.0-11.0) Red Blood Count 4.55 x10^6/uL (3.50-5.40) Hemoglobin 14.7 g/dL (12.0-15.5) Hematocrit 42.1 % (36.0-47.0) Mean Corpuscular Volume 93 fL (79-100) Mean Corpuscular Hemoglobin 32 pg (25-35) Mean Corpuscular Hemoglobin Concent 35 g/dL (31-37) Red Cell Distribution Width 13.3 % (11.5-14.5) Platelet Count 243 x10^3/uL (140-400) Neutrophils (%) (Auto) 62 % (31-73) Lymphocytes (%) (Auto) 21 % (24-48) L Monocytes (%) (Auto) 11 % (0-9) H Eosinophils (%) (Auto) 6 % (0-3) H Basophils (%) (Auto) 0 % (0-3) Neutrophils # (Auto) 4.4 x10^3/uL (1.8-7.7) Lymphocytes # (Auto) 1.5 x10^3/uL (1.0-4.8) Monocytes # (Auto) 0.8 x10^3/uL (0.0-1.1) Eosinophils # (Auto) 0.4 x10^3/uL (0.0-0.7) Basophils # (Auto) 0.0 x10^3/uL (0.0-0.2) Laboratory Tests 02/23/20 16:36 (VI DAVIS APRN) EKG: EK and read by Dr Motley as Sinus Rhythm and no STEMI[] (VI DAVIS APRN) Radiology/Procedures: Radiology/Procedures: [] Impression: [facility] [address] [place], [place] [id number] IMAGING REPORT Signed PATIENT: SAURAV BILLY MACCOUNT: [id number] : 1960 LOCATION: ER AGE: 59 SEX: F EXAM STATUS: REG ER ORD. PHYSICIAN: VI DAVIS APRN REASON: cough PROCEDURE: PORTABLE CHEST 1V Exam: Chest one view INDICATION: Cough TECHNIQUE: Frontal view of the chest Comparisons: 09/02/2019 FINDINGS: The cardiomediastinal silhouette and pulmonary vessels are within normal limits. The lung and pleural spaces are clear. IMPRESSION: No acute cardiopulmonary process. Electronically signed by: Radha Mae MD (02/23/2020 5:08 PM) [id number] DICTATED and SIGNED BY: RADHA MAE MD DATE: 02/23/20 1702 (VI DAVIS APRN) Course & Med Decision Making: Course & Med Decision Making Pertinent Labs and Imaging studies reviewed. (See chart for details) See HPI. Patient is alert and oriented x4. Speaks in full complete sentences. Ambulatory with a steady gait. Lungs are clear to auscultation upper lobes and diminished in lower lobes. Vital signs are within normal limits. Skin pink warm and dry. No extremity edema. Patient states the chest pain is only when coughing. She is [place]z-speaking and dry transfer man is used. Abdomen is soft and nontender. Patient states she has had no recent travel and does not know if she has been exposed anyone else is been sick. She rates her discomfort at 7 out of 10. Her throat is reddened and slightly swollen tonsils at 1+. There is no exudates. No unilateral extremity swelling. No calf tenderness. Does not use any kind of hormones. She is not a smoker. Patient has a urinary tract infection. Blood work unremarkable. Chest x-ray shows no acute findings. I will send her home on a Medrol dose pack and cough medication. She will be instructed about quarantining. [] (VI DAVIS APRN) Course & Med Decision Making I have reviewed the PA/BASKET MACHINE OPERATOR's note and Plan of Care. I was available for consultation as needed during the patient's visit in the emergency department. I agree with the clinical impression, plans and disposition. (CHUCK MOTLEY MD) Cisco Disclaimer: Cisco Disclaimer: This electronic medical record was generated, in whole or in part, using a voice recognition dictation system. (VI DAVIS APRN) Departure Departure Impression: Primary Impression: Cough Additional Impressions: UTI (urinary tract infection) Qualified Codes: N39.0 - Urinary tract infection, site not specified Person under investigation for COVID-19 Disposition: HOME, SELF-CARE Condition: STABLE Referrals: NO PCP (PCP) Patient Instructions: Cough, Adult, Urinary Tract Infection Additional Instructions: Quarantine for the next 14 days. Take medication as prescribed and with food. Drink plenty of fluids. Take Tylenol or ibuprofen for any pain or fever you may have. Scripts Cephalexin (KEFLEX) 500 Mg Capsule 1 CAP PO BID for 7 Days, #14 CAP 0 Refills Prov: VI DAVIS APRN 02/23/20 Benzonatate (TESSALON PERLE) 100 Mg Capsule 1 CAP PO TID, #30 CAP Prov: VI DAVIS APRN 02/23/20 Methylprednisolone (MEDROL) 4 Mg Tab.ds.pk 1 PKG PO UD, #1 PKG Prov: VI DAVIS APRN 02/23/20 Justicifation of Admission Dx: Justifications for Admission: Justification of Admission Dx: N/A (VI DAVIS APRN) VI DAVIS APRN Feb 23, 2020 16:59 CHUCK MOTLEY MD Feb 24, 2020 06:37
[2020-02-23 17:04] LABS: CALCIUM 8.7 mg/dL (8.5-10.1); CREATININE 0.7 mg/dL (0.6-1.0); GFR 85.4; POTASSIUM 3.3 mmol/L (3.5-5.1)
[2020-02-23 17:11] LABS: ALBUMIN 3.3 g/dL (3.4-5.0); ALBUMIN/GLOBULIN RATIO 0.8 (1.0-1.7); TOTAL BILIRUBIN 0.3 mg/dL (0.2-1.0); TOTAL PROTEIN 7.3 g/dL (6.4-8.2)
--- NOTE | 2020-02-23 17:11 | RAD ---
Exam: Chest one view INDICATION: Cough TECHNIQUE: Frontal view of the chest Comparisons: 09/02/2019 FINDINGS: The cardiomediastinal silhouette and pulmonary vessels are within normal limits. The lung and pleural spaces are clear. IMPRESSION: No acute cardiopulmonary process. Electronically signed by: Radha Rossi MD (02/23/2020 5:08 PM) [id number]
[2020-02-23 18:55] LABS: BILIRUBIN,URINE NEGATIVE (NEG); CLARITY,URINE CLEAR; COLOR,URINE YELLOW; NITRITE,URINE NEGATIVE (NEG); PROTEIN,URINE NEGATIVE (NEG-TRACE); UROBILINOGEN,URINE 0.2 mg/dL (0.2 mg/dL)
[2020-02-23 19:06] LABS: BACTERIA,URINE MANY /HPF (0-FEW); SQUAMOUS EPITHELIAL CELL,UR MANY /LPF
[2020-02-23 19:07] LABS: RBC,URINE 0 /HPF (0-2)
[2020-02-23] MEDS ORDERED: METH4TAB2 PO (19:28)
[2020-02-23] MEDS ORDERED: CEPH-264 PO (19:40)
[2020-02-23] MEDS ORDERED: BENZ100C PO (19:40)
[2020-02-23 20:06] VITALS: BP 157/85
--- NOTE | 2020-02-24 02:45 | EKG ---
[facility] [address] [place] [address] Test Date: 2020-02-23 Test Time: 16:32:05 Pat Name: SAURAV BILLY Department: Room: Gender: F Preschool Aide: : 1960 Requested By: VI DAVIS Order Number: [id number] Reading MD: Measurements Intervals [place] Rate: 85 P: 36 DE: 158 QRS: -31 QRSD: 84 T: 8 QT: 434 QTc: 523 Interpretive Statements SINUS RHYTHM ABNORMAL LEFT AXIS DEVIATION R-S TRANSITION ZONE IN V LEADS DISPLACED TO THE LEFT LEFT ANTERIOR FASCICULAR BLOCK PROLONGED QT ABNORMAL ECG RI6.02 No previous ECG available for comparison
--- NOTE | 2020-02-28 13:29 | NUR ---
IP: Informed pt of negative COVID results via police patrol lieutenantAanstacia. Pt verbalized understanding.
== END 2020-02-23 20:17 | disposition home or self-care (01) ==
LOC: ER 15:36
DX: N39.0 Urinary tract infection, site not specified (principal); Z20.828 Contact with and (suspected) exposure to other viral communicable diseases; R05 Cough; R07.89 Other chest pain; E03.9 Hypothyroidism, unspecified; Z90.49 Acquired absence of other specified parts of digestive tract
CPT/HCPCS: 36415; 71045; 80053; 81001; 84484; 85025; 87070; 87086; 87880; 93005; 99285; U0003

== ENCOUNTER 2021-07-05 16:50 | Emergency (ER) | payer SELFPAY ==
[~2021-07-05] VITALS: Ht 165.1 cm; Wt 82.3 kg
[~2021-07-05 16:50] MED LIST changes: +ACET500T68 PO; +ASPI-886 PO; +ATOR20TA58 PO; +BENZ100C PO; +BUTA-177 PO; +BUTA1TAB23 PO; +CEPH-264 PO; +CITA20TA9 PO; +DEXT15DR17 OU; +DOCU-148 PO; +IBUP-1027 PO; +IBUP-1670 PO; +LANS15CA73 PO; -LANS15CA78 PO; +MAG30ORA2 PO; +MECL-75 PO; +MECL12.582 PO; +METH4TAB2 PO; -OMEP40CA45 PO; +OMEP40CA7 PO
--- NOTE | 2021-07-05 18:30 | PHYS DOC ---
Past Medical History Past Medical History: High Cholesterol Additional Past Medical Histor: pseudoseizures Past Surgical History: No Surgical History Smoking Status: Former Smoker Alcohol Use: None Drug Use: None General Adult EDM: Chief Complaint: ABDOMINAL PAIN HPI: HPI: Patient is a 60 year old female who presents with pain with urination, odor. Patient denies abnormal discharge or itching denies abdominal pain. Patient states that pain started yesterday. Denies taking anything at home for discomfort. Patient is not sexually active and not concerned about STIs. Patient denies medical history. Review of Systems: Review of Systems: ROS At least 10 ROS systems have been reviewed and are negative except as documented in the HPI. General: Negative except as outlined in HPI above. Skin: Negative except as outlined in HPI above. HEENT: Negative except as outlined in HPI above. Neck: Negative except as outlined in HPI above. Respiratory: Negative except as outlined in HPI above.. Cardiovascular: Negative except as outlined in HPI above. Abdomen: Negative except as outlined in HPI above. : Negative except as outlined in HPI above. Back/MSK: Negative except as outlined in HPI above. Neuro: Negative except as outlined in HPI above. Psych: Negative except as outlined in HPI above. Heart Score: C/O Chest Pain: No Risk Factors: Risk Factors: DM, Current or recent (<one month) smoker, HTN, HLP, family history of CAD, obesity. Risk Scores: Score 0 - 3: 2.5% MACE over next 6 weeks - Discharge Home Score 4 - 6: 20.3% MACE over next 6 weeks - Admit for Clinical Observation Score 7 - 10: 72.7% MACE over next 6 weeks - Early Invasive Strategies Allergies: Allergies: Allergies Coded Allergies Type Severity Reaction Last Updated Verified No Known Drug Allergies 01/22/16 No Physical Exam: PE: Constitutional: Well developed, well nourished, no acute distress, non-toxic appearance. [] HENT: Normocephalic, atraumatic, bilateral external ears normal, oropharynx moist, no oral exudates, nose normal. [] Eyes: PERRLA, EOMI, conjunctiva normal, no discharge. [] Neck: Normal range of motion, no tenderness, supple, no stridor. [] Cardiovascular:Heart rate regular rhythm, no murmur [] Lungs & Thorax: Bilateral breath sounds clear to auscultation [] Abdomen: Bowel sounds normal, soft, no tenderness, no masses, no pulsatile masses. [] Skin: Warm, dry, no erythema, no rash. [] Back: No tenderness, no CVA tenderness. [] Extremities: No tenderness, no cyanosis, no clubbing, ROM intact, no edema. [] Neurologic: Alert and oriented X 3, normal motor function, normal sensory function, no focal deficits noted. [] Psychologic: Affect normal, judgement normal, mood normal. [] Current Patient Data: Vital Signs: Vital Signs Date Time Temp Pulse Resp B/P (MAP) Pulse Ox O2 Delivery O2 Flow Rate FiO2 07/05/21 17:12 98.9 85 17 132/72 (92) 99 Room Air 98.9 EKG: EKG: [] Radiology/Procedures: Radiology/Procedures: [] Course & Med Decision Making: Course & Med Decision Making Pertinent Labs and Imaging studies reviewed. (See chart for details) [] 60-year-old female who presents with a burning pain with urination along with fishy odor. Patient states that symptoms started yesterday and pain has been constant. Denies taking anything for discomfort at home. Work-up in ER consisted of UA and wet prep. Upon physical exam excoriation noted on the vaginal opening. Signs of infection. Patient denies itching or abdominal pain. Wet prep is negative. UA is unremarkable. Patient most likely has vaginal atrophy. Discussed results with patient. Advised patient to use a barrier cream such as Vaseline or Aquaphor to the area to help with discomfort. Patient should follow-up with [facility] for further management and evaluation. Discussed return pre cautions in length with patient. Patient verbalizes understanding of discharge instructions Cisco Disclaimer: Cisco Disclaimer: This electronic medical record was generated, in whole or in part, using a voice recognition dictation system. Departure Departure Impression: Primary Impression: Vaginal atrophy Disposition: HOME / SELF CARE / HOMELESS Condition: STABLE Referrals: NO PCP (PCP) Additional Instructions: You were seen in the emergency room for vaginal irritation. We tested your urine for infection which was negative. We also tested you for bacteria and yeast which both were negative. It appears you have some vaginal atrophy. You can use a barrier cream to the area to help protect area from irritation. Vaseline or Aquaphor could help protect the area. Please follow-up with the [facility] for further management. Return to the emergency room if you have worsening pain, fever. EMERGENCY DEPARTMENT GENERAL DISCHARGE INSTRUCTIONS Thank you for coming to [facility] Emergency Department (ED) today and trusting us with you care. We trust that you had a positive experience in our Emergency Department. If you wish to speak to the department management, you may call the Director at [phone]. YOUR FOLLOW UP INSTRUCTIONS ARE FOLLOWS: 1. Do you have a private Doctor? If you do not have a private doctor, please ask for a resource list of physicians or clinics that may be able to assist you with follow up care. 2. The Emergency Physicain has interpreted your x-rays. The X-Ray specialist will also review them. If there is a change in the findings, you will be notified in 48 hours when at all possible. 3. A lab test or culture has been done, your results will be reviewed and you will be notified if you need a change in treatment. ADDITIONAL INSTRUCTIONS AND INFORMATION: 1. Your care today has been supervised by a physician who is specially trained in emergency care. Many problems require more than one evaluation for a complete diagnosis and treatment. We recommend that you schedule your follow up appointment as recommended to ensure complete treatment of you illness or injury. If you are unable to obtain follow up care and continue to have a problem, or if your condition worsens, we recommend that you return to the ED. 2. We are not able to safely determine your condition over the phone nor are we able to give sound medical advice over the phone. For these safety reasons, if you call for medical advice we will ask you to come to the ED for further evaluation. 3. If you have any questions regarding these discharge instructions please call the ED at [phone]. SAFETY INFORMATION: In the interest of safety, wellness, and injury prevention; we encourage you to wear your sealbelt, if you smoke; quite smoking, and we encourage family to use a protective helmet for bicycling and other sporting events that present an increased risk for head injury. IF YOUR SYMPTOMS WORSEN OR NEW SYMPTOMS DEVELOP, OR YOU HAVE CONCERNS ABOUT YOUR CONDITION; OR IF YOUR CONDITION WORSENS WHILE YOU ARE WAITING FOR YOUR FOLLOW UP APPOINTMENT; EITHER CONTACT YOUR PRIMARY CARE DOCTOR, THE PHYSICIAN WHOSE NAME AND NUMBER YOU WERE GIVEN, OR RETURN TO THE ED IMMEDIATELY. DARSHAN VAZ APRN Jul 05, 2021 18:30
[2021-07-05 18:32] LABS: BILIRUBIN,URINE NEGATIVE (NEG); CLARITY,URINE CLEAR; COLOR,URINE YELLOW; NITRITE,URINE NEGATIVE (NEG); PH,URINE 5.5 (<5.0-8.0); PROTEIN,URINE NEGATIVE (NEG-TRACE); UROBILINOGEN,URINE 0.2 mg/dL (0.2 mg/dL)
[2021-07-05 18:52] LABS: BACTERIA,URINE FEW /HPF (0-FEW); RBC,URINE 0 /HPF (0-2); WBC,URINE OCC /HPF (0-4)
[2021-07-05 19:55] VITALS: BP 115/73
== END 2021-07-05 20:10 | disposition home or self-care (01) ==
LOC: ER 16:50
DX: N95.2 Postmenopausal atrophic vaginitis (principal); E78.00 Pure hypercholesterolemia, unspecified; Z87.891 Personal history of nicotine dependence
CPT/HCPCS: 81001; 99285; Q0111